=== PATIENT | male | born 1950 | race Caucasian/White ===

== ENCOUNTER → 2019-07-07 07:19 | Outpatient (CLI) | payer MEDICARE, OTHER, SELFPAY ==
[2019-07-07 08:49] LABS: Prostate Specific Antigen < 0.064 ng/mL (0.10-4.00)
== END ==
PROVIDERS: Family Provider Family Medicine; PCP Family Medicine; Referring Provider Specialist; Visit Provider Specialist
DX: C61 Malignant neoplasm of prostate (principal)
CPT/HCPCS: 36415; 84153

== ENCOUNTER → 2019-08-18 07:27 | Outpatient (CLI) | payer MEDICARE, OTHER, SELFPAY ==
[2019-08-18 09:19] LABS: Alanine Aminotransferase 29 IU/L (<50); Albumin 4.4 g/dL (3.5-5.0); Albumin Globulin Ratio 1.6 (1.0-2.8); Alkaline Phosphatase 81 U/L (38-126); Aspartate Aminotransferase 33 IU/L (17-59); BUN Creatinine Ratio 23.2 (6-22); Bilirubin Total 0.7 mg/dL (0.2-1.3); Blood Urea Nitrogen 22 mg/dL (9-20); Calcium 9.1 mg/dL (8.4-10.2); Carbon Dioxide 26 mmol/L (22-32); Chloride 106 mmol/L (98-107); Cholesterol 241 mg/dL (140-199); Estimated Glomerular Filt Rate > 60.0 mL/min (>60); Globulin 2.8 g/dL (1.7-4.1); Glucose 112 mg/dL (80-110); HDL Cholesterol 44 mg/dL (40-60); HEMOLYSIS < 15 (0-50); LDL Cholesterol Calculated 169 mg/dL (<100); Potassium 4.8 mmol/L (3.4-5.1); Sodium 140 mmol/L (137-145); Total Protein 7.2 g/dL (6.3-8.2); Triglycerides 139 mg/dL (35-150)
== END ==
PROVIDERS: Family Provider Family Medicine; PCP Internal Medicine; Referring Provider Internal Medicine; Visit Provider Internal Medicine
DX: M15.0 Primary generalized (osteo)arthritis (principal); E78.2 Mixed hyperlipidemia
CPT/HCPCS: 36415; 80053; 80061

== ENCOUNTER → 2020-01-07 15:39 | Outpatient (CLI) | payer MEDICARE, OTHER, SELFPAY | PROVIDERS: Family Provider Family Medicine; PCP Internal Medicine; Referring Provider Internal Medicine; Visit Provider Family Medicine | DX: S81.802A Unspecified open wound, left lower leg, initial encounter (principal); T81.31XA Disruption of external operation (surgical) wound, not elsewhere classified, initial encounter | CPT/HCPCS: 11042; 99203; 99213 ==

== ENCOUNTER → 2020-01-14 13:30 | Outpatient (CLI) | payer MEDICARE, OTHER, SELFPAY | PROVIDERS: PCP Internal Medicine; Referring Provider Internal Medicine; Visit Provider Family Medicine | DX: S81.802A Unspecified open wound, left lower leg, initial encounter (principal); T81.31XA Disruption of external operation (surgical) wound, not elsewhere classified, initial encounter | CPT/HCPCS: 11042 ==

== ENCOUNTER → 2020-01-21 09:04 | Outpatient (CLI) | payer MEDICARE, OTHER, SELFPAY | PROVIDERS: PCP Internal Medicine; Referring Provider Internal Medicine; Visit Provider Family Medicine | DX: S81.802A Unspecified open wound, left lower leg, initial encounter (principal) | CPT/HCPCS: 11042 ==

== ENCOUNTER → 2020-02-04 09:06 | Outpatient (CLI) | payer MEDICARE, OTHER, SELFPAY | PROVIDERS: PCP Internal Medicine; Referring Provider Internal Medicine; Visit Provider Family Medicine | DX: S81.802A Unspecified open wound, left lower leg, initial encounter (principal) | CPT/HCPCS: 11042 ==

== ENCOUNTER → 2020-02-18 08:46 | Outpatient (CLI) | payer MEDICARE, OTHER, SELFPAY | PROVIDERS: PCP Internal Medicine; Referring Provider Internal Medicine; Visit Provider Family Medicine | DX: S81.802D Unspecified open wound, left lower leg, subsequent encounter (principal) | CPT/HCPCS: 99212; 99213 ==

== ENCOUNTER → 2020-04-01 12:15 | Outpatient (CLI) | payer MEDICARE, OTHER, SELFPAY ==
[2020-04-01] MEDS: COVID-19 VACC #1, MRNA(MOD) 100 MCG/0.5 ML VIAL IM (12:21)
== END ==
PROVIDERS: PCP Internal Medicine; Visit Provider Internal Medicine
DX: Z23 Encounter for immunization (principal)
CPT/HCPCS: 0011A; 91301

== ENCOUNTER → 2020-04-29 09:37 | Outpatient (CLI) | payer MEDICARE, OTHER, SELFPAY ==
[2020-04-29] MEDS: COVID-19 VACC #2, MRNA(MOD) 100 MCG/0.5 ML VIAL IM (09:48)
== END ==
PROVIDERS: PCP Internal Medicine; Visit Provider Internal Medicine
DX: Z23 Encounter for immunization (principal)
CPT/HCPCS: 0012A; 91301

== ENCOUNTER → 2020-05-24 06:59 | Outpatient (CLI) | payer MEDICARE, OTHER, SELFPAY ==
[2020-05-24 08:29] LABS: Alanine Aminotransferase 41 IU/L (<50); Albumin 4.3 g/dL (3.5-5.0); Albumin Globulin Ratio 1.7 (1.0-2.8); Alkaline Phosphatase 75 U/L (38-126); Aspartate Aminotransferase 34 IU/L (17-59); BUN Creatinine Ratio 21.1 (6-22); Bilirubin Total 0.7 mg/dL (0.2-1.3); Blood Urea Nitrogen 20 mg/dL (9-20); Calcium 9.2 mg/dL (8.4-10.2); Carbon Dioxide 29 mmol/L (22-32); Chloride 106 mmol/L (98-107); Cholesterol 224 mg/dL (140-199); Estimated Glomerular Filt Rate > 60.0 mL/min (>60); Globulin 2.6 g/dL (1.7-4.1); Glucose 101 mg/dL (80-110); HDL Cholesterol 41 mg/dL (40-60); HEMOLYSIS < 15 (0-50); LDL Cholesterol Calculated 141 mg/dL (<100); Potassium 4.7 mmol/L (3.4-5.1); Sodium 140 mmol/L (137-145); Total Protein 6.9 g/dL (6.3-8.2); Triglycerides 208 mg/dL (35-150)
[2020-05-24 08:54] LABS: Prostate Specific Antigen < 0.064 ng/mL (0.10-4.00)
== END ==
PROVIDERS: PCP Internal Medicine; Referring Provider Internal Medicine; Visit Provider Internal Medicine
DX: E78.2 Mixed hyperlipidemia (principal); Z12.5 Encounter for screening for malignant neoplasm of prostate
CPT/HCPCS: 36415; 80053; 80061; 84153; G0103

== ENCOUNTER → 2021-03-18 09:40 | Outpatient (CLI) | payer MEDICARE, OTHER, SELFPAY ==
[2021-03-18 10:44] LABS: COVID19 -Nasal RAPID Negative (Negative)
== END ==
PROVIDERS: PCP Family Medicine; Visit Provider Specialist
DX: Z20.822 Contact with and (suspected) exposure to COVID-19 (principal)
CPT/HCPCS: 87635; C9803

== ENCOUNTER 2021-03-21 07:48 | Day surgery (SDC) | payer MEDICARE, OTHER, SELFPAY ==
[2021-03-16 08:24] VITALS: BMI 26.9
[2021-03-21] VITALS (9 sets, daily range): BP systolic 114–169; BP diastolic 64–84; PULSE 55–75; RESP 12–18; TEMP 36.3–36.6; O2SAT 95–98; BMI 26.9
[2021-03-21] MEDS: LACTATED RINGERS 1,000 ML 42 ML IV (08:14)
--- NOTE | 2021-03-21 10:19 | PM.PREOP ---
Pre-operative Note COVID-19 Criteria for continued procedure: Expected advancement of disease process, Possibility delay results in more complex future surgery or treatment, Increased loss of function, Continuing or worsening of significant or severe pain, Delay expected to result in less-positive ultimate med/surg outcome and Non-surgical alternatives not available or appropriate per current SOC Interval Note History & Physical reviewed/Exam performed by Physician: Yes Changes to H&P: No
[2021-03-21] MEDS: CEFAZOLIN 2 GM/20 ML SYRINGE IV (10:45)
--- NOTE | 2021-03-21 10:46 | SUR.OPER ---
Lithotomy on padded OR bed, head on pillow, arms secured on padded arm boards at <90 degrees abduction. Legs secured in padded yellow fins stirrups.
[2021-03-21] MEDS: BELLADONNA/OPIUM SUPPOSITORIES 1 EACH PR (10:59)
--- NOTE | 2021-03-21 12:29 | SUR.PHASEII ---
Mcguire and leg bag teaching done with patient. Pt returned demonstration correctly. SBAR report to Lenora HANSON at this time.
--- NOTE | 2021-03-31 09:18 | PM.OP.1 ---
Operative Date/Time/Diagnoses Date of procedure: 03/21/21 Time of procedure: 10:30 Pre-op diagnosis: Recurrent membranous urethral stricture Procedure & Clinicians Procedure: 1. Cystoscopy/dilation recurrent membranous urethral stricture. 2. Bladder outlet obstruction. Same procedure as scheduled: Yes Indications: 1. Recurrent membranous urethral stricture. 2. Bladder outlet obstruction. Surgeon: Mishel Herbert Anesthesia Type: General Operative Notes Findings: 1. Urethra penile and bulbar segment with normal caliber without annular stricture or lesion. 2. External sphincter-radiation changes/hypovascularity with mucosal excoriation. 3. Prostate-radiation changes with hypo vascular mucosa and telangiectasia and patchy distribution. Nonobstructing. 4. Bladder-1 to 2+ trabeculation. Normal ureteral orifices bilaterally. Closure Type: not applicable Applied: catheter (#20F silicone catheter.) Estimated Blood Loss (mL): 0 Blood products transfused: none Procedure in detail: Patient was positioned supine was administered general anesthesia. He was then repositioned semi lithotomy lower abdomen, genitalia, and groin were then prepped and draped in sterile fashion. The 22 [place]ian panendoscope then passed lower urinary tract with the findings as described above up to the external sphincter. At this point a 0.35 superstiff guidewire was advanced under direct visualization through the narrow aperture rhythm external sphincter. The panendoscope was then backloaded off the wire. Serpentine dilators were then used to gently, and successively dilated the channel to 20 [place]ian. The panendoscope was then front loaded on the guidewire and advanced proximally under direct visualization. The beak of the scope was used to dip down in through them membranous urethras segment and then was advanced more proximally without difficulty. Gentle fulcrum to the right, to the left, anterior, and posteriorly with the cystoscopic sheath was then performed. Findings were as described above. The panendoscope was then backloaded off the wire. A Councill tip was then created in the terminal and of a 20 [place]ian silicone catheter. This was then advanced over the Super Stiff guidewire and into the bladder. The superstiff guidewire was then removed. The Mcguire catheter balloon was then filled with 10 cc. And placed to gravity drainage. The patient was then repositioned in supine, was awakened, was then transferred to a [facility] for transport to PACU. Complications: none Post-operative Condition: stable Disposition: PACU Plan for aftercare: Discharge home
== END 2021-03-21 13:10 | disposition home or self-care (01) ==
PROVIDERS: PCP Family Medicine; Referring Provider Specialist; Visit Provider Specialist
PROC: (CPT 52281; principal; 2021-03-21 09:15)
DX: N35.813 Other membranous urethral stricture, male (principal); N13.8 Other obstructive and reflux uropathy; Z85.46 Personal history of malignant neoplasm of prostate
CPT/HCPCS: 52281; J0690; J1100; J1885; J2250; J2405; J2704; J3010

== ENCOUNTER → 2021-06-13 07:01 | Outpatient (CLI) | payer MEDICARE, OTHER, SELFPAY ==
[2021-06-13 08:38] LABS: Add Manual Diff / Slide Review NO; Basophils Absolute Auto 0 /uL (0-100); Basophils Percent Auto 0.7 % (0-2); Eosinophils Absolute Auto 200 /uL (0-450); Eosinophils Percent Auto 3.8 % (2-4); Hemoglobin 15.2 g/dL (13.5-17.5); Lymphocytes Absolute Auto 1500 /uL (1100-4500); Lymphocytes Percent Auto 33.3 % (25-40); Mean Corpuscular HGB Conc 33.7 % (30-36); Mean Corpuscular Hemoglobin 32.6 PG (26-34); Mean Corpuscular Volume 96.8 fL (80-100); Monocytes Absolute Auto 500 /uL (0-900); Monocytes Percent Auto 10.6 % (3-14); Neutrophils Absolute Auto 2200 /uL (1500-7000); Neutrophils Percent Auto 51.6 % (50-75); Platelet Count 160 X10^3/uL (150-400); Red Blood Cell Count 4.65 X10^6/uL (4.5-5.9); Red Cell Distribution Width 13.5 % (11.6-14.8); White Blood Cell Count 4.4 X10^3/uL (4.5-11.0)
[2021-06-13 08:55] LABS: Alanine Aminotransferase 38 IU/L (<50); Albumin 4.1 g/dL (3.5-5.0); Albumin Globulin Ratio 1.5 (1.0-2.8); Alkaline Phosphatase 69 U/L (38-126); Aspartate Aminotransferase 33 IU/L (17-59); BUN Creatinine Ratio 22.3 (6-22); Bilirubin Total 0.8 mg/dL (0.2-1.3); Blood Urea Nitrogen 21 mg/dL (9-20); Calcium 8.4 mg/dL (8.4-10.2); Carbon Dioxide 27 mmol/L (22-32); Chloride 107 mmol/L (98-107); Cholesterol 214 mg/dL (140-199); Estimated Glomerular Filt Rate > 60.0 mL/min (>60); Globulin 2.8 g/dL (1.7-4.1); Glucose 103 mg/dL (80-110); HDL Cholesterol 49 mg/dL (40-60); HEMOLYSIS < 15 (0-50); LDL Cholesterol Calculated 144 mg/dL (<100); Potassium 3.9 mmol/L (3.4-5.1); Sodium 141 mmol/L (137-145); Total Protein 6.9 g/dL (6.3-8.2); Triglycerides 105 mg/dL (35-150)
[2021-06-13 09:24] LABS: TSH w/ Reflex to FT4 2.69 uIU/mL (0.47-4.68)
== END ==
PROVIDERS: PCP Family Medicine; Referring Provider Family Medicine; Visit Provider Family Medicine
DX: E78.2 Mixed hyperlipidemia (principal); R03.0 Elevated blood-pressure reading, without diagnosis of hypertension
CPT/HCPCS: 36415; 80053; 80061; 84443; 85025

== ENCOUNTER 2021-10-26 09:45 | Outpatient (RCR) | payer MEDICARE, OTHER, SELFPAY ==
--- NOTE | 2021-08-11 13:15 | PT.OIE ---
Current Diagnoses Achilles tendinitis, right leg (08/11/21) Difficulty in walking, not elsewhere classified (08/11/21) Past Medical History (Last Reviewed 06/09/21 @ 11:56 by Mishel Herbert MD) Dry skin Hearing loss History of elevated PSA (~2006) History of malignant neoplasm of prostate History of urethral stricture Hyperlipidemia Membranous urethral stricture Vision disorder Wheezing (~2009) Past Surgical History (Last Reviewed 06/09/21 @ 11:56 by Mishel Herbert MD) Abscess (~2019) Anesthesia History of hernia repair (~1997) History of removal of skin mole (~2014) Hx of cystoscopy (03/15/21) Hx of left inguinal hernia repair (07/05/17) Prostate cancer (~2006) Visit Care Team Role Provider Type Donnie Gerard MD Attending Provider Physician Family Provider Primary Care Provider Referring Provider Specialty: Family Practice Address: [address] [place] [address] Email: [email or web address] Physical Therapy Initial Evaluation PT-OP-A Visit Information Start: 08/11/21 08:20 Freq: Status: Active Protocol: Document 08/11/21 09:45 AW (Rec: 08/11/21 08:30 AW [id number]) Out-Patient Physical Therapy Visit Information Visit Information Visit Type Initial Evaluation Visit Start Time 09:00 Visit Stop Time 09:45 Total Visit Minutes 45 Visit Number 1 Number of DRAWING BOX TENDER Visits 0 Evaluation Information Evaluation Date 08/11/21 PT-OP-B Current Condition Start: 08/11/21 08:20 Freq: Status: Active Protocol: Document 08/11/21 09:45 AW (Rec: 08/11/21 08:30 AW [id number]) Current Condition History of Current Condition Onset Date 10 months Current Complaints R foot/heel pain History of Current Condition Rizwan is an avid walker. He likes to walk 3-5 days per week for 4-6 miles at a time - usually on paved or well- maintained forest trails. He was out for a walk last year. He remembers sprinting across the street and came home with a sore Achilles tendon. It continued to bother him. For the past month, he hasn't been walking much as he has been involved with another project. Due to the break in activity, pt has very little soreness with walking at this time. PMH includes prostate cancer s /p radiation, HLD, HTN, urethral stricture, daily self -catheterization. Prior Treatments and Tests None. Treatment Goals Patient/Caregiver Goals Hiking trip in November. Prevent re-injury. PT-OP-C Subjective Start: 08/11/21 08:20 Freq: Status: Active Protocol: Document 08/11/21 09:45 AW (Rec: 08/11/21 17:21 AW [id number]) Patient Questionnaires Foot & Ankle Ability Measure- ADL and Sports FAAM-ADL Score 76 FAAM-ADL Impairment 1 to 19% Impaired (Score 67-83 ) FAAM-Sport Score 20 FAAM-Sport Impairment 20 to 39% Impaired (Score 19- 24) Lower Extremity Functional Scale LEFS Score 67 LEFS Impairment 1 to 19% Impaired (Score 63-79 ) OP-PT Pain Assessment Pain Assessment Grid Paper Pain Assessment Grid Completed Yes: Scanned to EMR PT-OP-D Balance Start: 08/11/21 08:20 Freq: Status: Active Protocol: Document 08/11/21 09:45 AW (Rec: 08/11/21 17:21 AW [id number]) Balance Tests Single Limb Standing Single Limb- Right 5 sec unstable Single Limb- Left 8 sec unstable PT-OP-E Functional Tests Start: 08/11/21 08:20 Freq: Status: Active Protocol: Document 08/11/21 09:45 AW (Rec: 08/11/21 17:23 AW [id number]) Functional Tests Functional Gait Assessment Score 29 Functional Gait Assessment Impairment 1 to <20% Impaired (Score 25- Rating 29) PT-OP-F Manual Assessment Start: 08/11/21 08:20 Freq: Status: Active Protocol: Document 08/11/21 09:45 AW (Rec: 08/11/21 17:21 AW [id number]) Manual Assessments Joint Mobility Assessment Joint Mobility Assessment Vaguely reduced A/P talar glide R ankle. Other Manual Assessments Other Manual Assessments Tender to palpation at right distal Achilles tendon. Minimal tenderness as Achilles insertion. No pain in plantar foot or at any bony landmarks of the foot. Of note, pt has slight atrophy of the left triceps surae. PT-OP-G Mobility & Gait Start: 08/11/21 08:20 Freq: Status: Active Protocol: Document 08/11/21 09:45 AW (Rec: 08/14/21 12:44 AW [id number]) OP Gait Assessment Comments Gait Comments Gait is WNL. Varus posture of knees is notable bilaterally. Good heelstrike and toe off on both sides. Stair Climbing Evaluation Comments Stair Climbing Comments Independent. Good foot clearance. Step over step. No need for rails. PT-OP-K Range of Motion Start: 08/11/21 08:20 Freq: Status: Active Protocol: Document 08/11/21 09:45 AW (Rec: 08/14/21 12:51 AW [id number]) Hip Goniometric Range of Motion Hip ROM Limitations Comments WNL Knee Goniometric Range of Motion Knee ROM Limitations Comments WNL Ankle and Foot Goniometric Range of Motion Ankle and Foot left Ankle/Foot ROM WFL Yes Dorsiflexion with Knee Flexed 50 Dorsiflexion with Knee Extended 49 Plantarflexion 40 Inversion 50 Eversion 20 right Ankle/Foot ROM WFL Yes Dorsiflexion with Knee Flexed 18 Dorsiflexion with Knee Extended 18 Plantarflexion 35 Inversion 45 Eversion 16 Toe Range of Motion Toe bilat Comments Toes are vaguely clawed in static stance PT-OP-M Strength Start: 08/11/21 08:20 Freq: Status: Active Protocol: Document 08/11/21 09:45 AW (Rec: 08/14/21 12:51 AW [id number]) Hip Strength Hip Manual Muscle Testing bilat Flexion (L2) 5 Normal Extension (S1) 5 Normal Abduction 4+ Good+ Knee Strength Knee Manual Muscle Testing bilat Flexion (S2) 5 Normal Extension (L3) 5 Normal Ankle/Foot Strength Ankle and Foot Manual Muscle Testing Left Dorsiflexion (L4) 5 Normal Plantarflexion (S1) 4 Good Inversion 5 Normal Eversion (S1) 5 Normal Comments Pt able to complete SL heel lift x 6 with good excursion. Right Dorsiflexion (L4) 5 Normal Plantarflexion (S1) 4- Good- Inversion 5 Normal Eversion (S1) 5 Normal Comments PF tested in standing with SL heel lift. Pt able to complete x4 with good excursion before fatigue and vague report of pain PT-OP-Q Treatments Start: 08/11/21 08:20 Freq: Status: Active Protocol: Document 08/11/21 09:45 AW (Rec: 08/14/21 13:14 AW [id number]) Therapeutic Exercises Standing Exercises heel lift Standing Exercise Name heel lift Side bilateral Resistance focus on eccentric phase Equipment Used 6 step, rail prn Reps/Minutes 2x15 Comments HEP soleus stretch Standing Exercise Name soleus stretch Side bilateral Reps/Minutes 60 SH x 2 Comments cued toes fwd, heel down; HEP gastroc stretch Standing Exercise Name gastroc stretch Side bilateral Reps/Minutes 60 SH x 2 Comments cued toes fwd, heel down; HEP Self-Care/Home Management Treatment Education Patient Education Home Exercise Program,Pain Management Other Education Reviewed evaluation findings and proposed plan of care based on improving strength and resiliency of right ankle. Pt understood and agreed. PT-OP-T Assessment and Plan Start: 08/11/21 08:20 Freq: Status: Active Protocol: Document 08/11/21 09:45 AW (Rec: 08/14/21 13:14 AW [id number]) Physical Therapy Assessment Rehab Potential Rehabilitation Potential Excellent Evaluation Complexity Number of Personal Factors/Comorbidities 1-2 Number of Body Systems Impaired 1-2 Clinical Presentation at Evaluation Stable Impairments Impairments Balance,Gait,Pain,Strength Other Concerns Fall Risk no Goals Three Impairment FAAM sport subscore 20% Brush Stainer Goal (LTG) Pt will improve FAAM sport subscore to 10% impairment or less to demonstrate improved resiliency and ability to participate in usual recreational activities. LTG Duration 10/11/21 Two Impairment strength Brush Stainer Goal (LTG) Pt will complete 15 reps SL heel raise bilaterally as a measure of improved plantar flexion strength LTG Duration 10/11/21 One Impairment lacks HEP Short Term Goal (STG) Pt will be instructed in appropriate HEP for strength, flexibility, and stability of ankles to support therapy services provided in clinic STG Duration 09/08/21 Brush Stainer Goal (LTG) Pt will be independent with HEP for ankle strength, flexibility, and stabilty to reduce likelihood of re-injury . LTG Duration 10/11/21 Assessment Summary Assessment Rizwan is an active 70 yo man who attends outpatient physical therapy with complaints of right Achilles pain ongoing for ~10 months with varying degrees of impairment. At time of evaluation, Rizwan had not been going for his regular 4+ mile walks and felt overall improvement in his symptoms. Pain was only mildly irritable and was most apparent with single-leg heel raises. Pt is expected to benefit from skilled therapy aimed at improving ankle strength, flexibility, and stability to reduce likelihood of re-injury and to promote return to regular physical activity. Physical Therapy Plan Frequency and Duration Frequency of Treatment 1-2x/week Duration of Treatment 2 months Plan of Care Start Date 08/11/21 Plan of Care End Date 10/11/21 Therapeutic Interventions Therapeutic Interventions Balance Training,Gait Training ,Home Exercise Program,Joint Mobilizations,Manual Therapy, Neuromuscular Re-education, Self-Care/Home Management,Soft Tissue Mobilization,Taping, Therapeutic Activities, Therapeutic Exercises Modalities Cold Pack/Ice Massage,Hot Packs,Ultrasound Next Visit Focus/Plan Next Note Type Treatment Note Next Visit Plan review initial HEP; manual therapy for improved talar glide; STM gastroc/soleus; single-leg stance, static balance on unstable surfaces
--- NOTE | 2021-08-11 13:15 | PT.OPPOC ---
Physical, Occupational & Speech Therapy At [facility] Current Diagnoses Achilles tendinitis, right leg (08/11/21) Difficulty in walking, not elsewhere classified (08/11/21) Visit Care Team Role Provider Type Donnie Gerard MD Attending Provider Physician Family Provider Primary Care Provider Referring Provider Specialty: Family Practice Address: [address] [place] [address], [facility] Email: [email or web address] Plan Of Care PT-OP-T Assessment and Plan Start: 08/11/21 08:20 Freq: Status: Active Protocol: Document 08/11/21 09:45 AW (Rec: 08/14/21 13:14 AW [id number]) Physical Therapy Assessment Rehab Potential Rehabilitation Potential Excellent Evaluation Complexity Number of Personal Factors/Comorbidities 1-2 Number of Body Systems Impaired 1-2 Clinical Presentation at Evaluation Stable Impairments Impairments Balance,Gait,Pain,Strength Other Concerns Fall Risk no Goals Three Impairment FAAM sport subscore 20% Intermediate Goal (LTG) Pt will improve FAAM sport subscore to 10% impairment or less to demonstrate improved resiliency and ability to participate in usual recreational activities. LTG Duration 10/11/21 Two Impairment strength Clay Preparation Supervisor Goal (LTG) Pt will complete 15 reps SL heel raise bilaterally as a measure of improved plantar flexion strength LTG Duration 10/11/21 One Impairment lacks HEP Short Term Goal (STG) Pt will be instructed in appropriate HEP for strength, flexibility, and stability of ankles to support therapy services provided in clinic STG Duration 09/08/21 Intermediate Goal (LTG) Pt will be independent with HEP for ankle strength, flexibility, and stabilty to reduce likelihood of re-injury . LTG Duration 10/11/21 Assessment Summary Assessment Rizwan is an active 70 yo man who attends outpatient physical therapy with complaints of right Achilles pain ongoing for ~10 months with varying degrees of impairment. At time of evaluation, Rizwan had not been going for his regular 4+ mile walks and felt overall improvement in his symptoms. Pain was only mildly irritable and was most apparent with single-leg heel raises. Pt is expected to benefit from skilled therapy aimed at improving ankle strength, flexibility, and stability to reduce likelihood of re-injury and to promote return to regular physical activity. Physical Therapy Plan Frequency and Duration Frequency of Treatment 1-2x/week Duration of Treatment 2 months Plan of Care Start Date 08/11/21 Plan of Care End Date 10/11/21 Therapeutic Interventions Therapeutic Interventions Balance Training,Gait Training ,Home Exercise Program,Joint Mobilizations,Manual Therapy, Neuromuscular Re-education, Self-Care/Home Management,Soft Tissue Mobilization,Taping, Therapeutic Activities, Therapeutic Exercises Modalities Cold Pack/Ice Massage,Hot Packs,Ultrasound Next Visit Focus/Plan Next Note Type Treatment Note Next Visit Plan review initial HEP; manual therapy for improved talar glide; STM gastroc/soleus; single-leg stance, static balance on unstable surfaces Plan of Care Dates Plan of Care Start Date 08/11/21 Plan of Care End Date 10/11/21 Electronically Signed by: Lucia Prather, PT 08/14/21 4410 If you are in agreement with this Plan of Care, please return a signed and dated copy. I have reviewed this Plan of Care and certify that the skilled therapy services above are required to meet the patient?s needs. Physician Signature Date Printed Name and Credentials Clinical Instructor Signature Printed Name and Credentials
--- NOTE | 2021-08-16 16:51 | PT.OTN ---
Current Diagnoses Achilles tendinitis, right leg (08/16/21) Difficulty in walking, not elsewhere classified (08/16/21) Physical Therapy Treatment Note PT-OP-A Visit Information Start: 08/11/21 08:20 Freq: Status: Active Protocol: Document 08/16/21 15:32 AW (Rec: 08/16/21 16:51 AW [id number]) Out-Patient Physical Therapy Visit Information Visit Information Visit Type Treatment Note Visit Start Time 16:00 Visit Stop Time 16:45 Total Visit Minutes 45 Visit Number 2 Number of INFRASTRUCTURE MANAGER Visits 0 Evaluation Information Evaluation Date 08/11/21 PT-OP-B Current Condition Start: 08/11/21 08:20 Freq: Status: Active Protocol: Document 08/11/21 09:45 AW (Rec: 08/11/21 08:30 AW [id number]) Current Condition History of Current Condition Onset Date 10 months Current Complaints R foot/heel pain History of Current Condition Rizwan is an avid walker. He likes to walk 3-5 days per week for 4-6 miles at a time - usually on paved or well- maintained forest trails. He was out for a walk last year. He remembers sprinting across the street and came home with a sore Achilles tendon. It continued to bother him. For the past month, he hasn't been walking much as he has been involved with another project. Due to the break in activity, pt has very little soreness with walking at this time. PMH includes prostate cancer s /p radiation, HLD, HTN, urethral stricture, daily self -catheterization. Prior Treatments and Tests None. Treatment Goals Patient/Caregiver Goals Hiking trip in November. Prevent re-injury. PT-OP-C Subjective Start: 08/11/21 08:20 Freq: Status: Active Protocol: Document 08/16/21 15:32 AW (Rec: 08/16/21 16:51 AW [id number]) OP-PT Subjective Patient Comments Patient Comments I've been on a couple of five mile walks. I remember to stretch before but I forget afterward. PT-OP-D Balance Start: 08/11/21 08:20 Freq: Status: Active Protocol: Document 08/11/21 09:45 AW (Rec: 08/11/21 17:21 AW [id number]) Balance Tests Single Limb Standing Single Limb- Right 5 sec unstable Single Limb- Left 8 sec unstable PT-OP-E Functional Tests Start: 08/11/21 08:20 Freq: Status: Active Protocol: Document 08/11/21 09:45 AW (Rec: 08/11/21 17:23 AW [id number]) Functional Tests Functional Gait Assessment Score 29 Functional Gait Assessment Impairment 1 to <20% Impaired (Score 25- Rating 29) PT-OP-F Manual Assessment Start: 08/11/21 08:20 Freq: Status: Active Protocol: Document 08/11/21 09:45 AW (Rec: 08/11/21 17:21 AW [id number]) Manual Assessments Joint Mobility Assessment Joint Mobility Assessment Vaguely reduced A/P talar glide R ankle. Other Manual Assessments Other Manual Assessments Tender to palpation at right distal Achilles tendon. Minimal tenderness as Achilles insertion. No pain in plantar foot or at any bony landmarks of the foot. Of note, pt has slight atrophy of the left triceps surae. PT-OP-G Mobility & Gait Start: 08/11/21 08:20 Freq: Status: Active Protocol: Document 08/11/21 09:45 AW (Rec: 08/14/21 12:44 AW [id number]) OP Gait Assessment Comments Gait Comments Gait is WNL. Varus posture of knees is notable bilaterally. Good heelstrike and toe off on both sides. Stair Climbing Evaluation Comments Stair Climbing Comments Independent. Good foot clearance. Step over step. No need for rails. PT-OP-K Range of Motion Start: 08/11/21 08:20 Freq: Status: Active Protocol: Document 08/11/21 09:45 AW (Rec: 08/14/21 12:51 AW [id number]) Hip Goniometric Range of Motion Hip ROM Limitations Comments WNL Knee Goniometric Range of Motion Knee ROM Limitations Comments WNL Ankle and Foot Goniometric Range of Motion Ankle and Foot left Ankle/Foot ROM WFL Yes Dorsiflexion with Knee Flexed 50 Dorsiflexion with Knee Extended 49 Plantarflexion 40 Inversion 50 Eversion 20 right Ankle/Foot ROM WFL Yes Dorsiflexion with Knee Flexed 18 Dorsiflexion with Knee Extended 18 Plantarflexion 35 Inversion 45 Eversion 16 Toe Range of Motion Toe bilat Comments Toes are vaguely clawed in static stance PT-OP-M Strength Start: 08/11/21 08:20 Freq: Status: Active Protocol: Document 08/11/21 09:45 AW (Rec: 08/14/21 12:51 AW [id number]) Hip Strength Hip Manual Muscle Testing bilat Flexion (L2) 5 Normal Extension (S1) 5 Normal Abduction 4+ Good+ Knee Strength Knee Manual Muscle Testing bilat Flexion (S2) 5 Normal Extension (L3) 5 Normal Ankle/Foot Strength Ankle and Foot Manual Muscle Testing Left Dorsiflexion (L4) 5 Normal Plantarflexion (S1) 4 Good Inversion 5 Normal Eversion (S1) 5 Normal Comments Pt able to complete SL heel lift x 6 with good excursion. Right Dorsiflexion (L4) 5 Normal Plantarflexion (S1) 4- Good- Inversion 5 Normal Eversion (S1) 5 Normal Comments PF tested in standing with SL heel lift. Pt able to complete x4 with good excursion before fatigue and vague report of pain PT-OP-Q Treatments Start: 08/11/21 08:20 Freq: Status: Active Protocol: Document 08/16/21 15:32 AW (Rec: 08/16/21 16:51 AW [id number]) Cardio Equipment Elliptical Duration (Minutes) 4 Resistance 5 Therapeutic Exercises Standing Exercises squat tap Standing Exercise Name squat tap Equipment Used std ht chair; 16 block Comments HEP DF self-mob Standing Exercise Name DF self-mob Side right Equipment Used 12 step Comments cued knees as far past toes as able with SLS Standing Exercise Name SLS Side bilateral Equipment Used with counter support prn Comments cued weight distribution on plantar foot, limit trunk lean ; HEP heel lift Standing Exercise Name heel lift Side bilateral Resistance focus on eccentric phase Equipment Used 6 step, rail prn Reps/Minutes 2x15 Comments HEP review; cued count 1 up, 4 down soleus stretch Standing Exercise Name soleus stretch Side bilateral Reps/Minutes 60 SH x 2 Comments cued toes fwd, heel down; HEP review gastroc stretch Standing Exercise Name gastroc stretch Side bilateral Reps/Minutes 60 SH x 2 Comments cued toes fwd, heel down; HEP review Manual Therapy Treatment Soft Tissue Mobilization R gastroc/soleus/Achilles Body Location R gastroc/soleus/Achilles Mobilization Type Rolling,Strumming,Sustained Pressure,Trigger Point Release Intensity/Depth Moderate Body Position Prone Comments TP noted lateral gastroc; reduced density post STM Joint Mobilizations R talus Joint R talus Direction A>P Grade III Body Position Supine Comments With contract-relax for improved DF Self-Care/Home Management Treatment Education Patient Education Home Exercise Program Other Education Added standing DF self-mob, SLS, and squat tap for HEP PT-OP-T Assessment and Plan Start: 08/11/21 08:20 Freq: Status: Active Protocol: Document 08/16/21 15:32 AW (Rec: 08/16/21 16:51 AW [id number]) Physical Therapy Assessment Goals Three Impairment FAAM sport subscore 20% Inspector Penetrant Goal (LTG) Pt will improve FAAM sport subscore to 10% impairment or less to demonstrate improved resiliency and ability to participate in usual recreational activities. LTG Duration 10/11/21 Two Impairment strength Inspector Penetrant Goal (LTG) Pt will complete 15 reps SL heel raise bilaterally as a measure of improved plantar flexion strength LTG Duration 10/11/21 One Impairment lacks HEP Short Term Goal (STG) Pt will be instructed in appropriate HEP for strength, flexibility, and stability of ankles to support therapy services provided in clinic STG Duration 09/08/21 Snf Goal (LTG) Pt will be independent with HEP for ankle strength, flexibility, and stabilty to reduce likelihood of re-injury . LTG Duration 10/11/21 Assessment Summary Assessment Rizwan is quite challenged with single leg stance - unable to maintain without significant shear and UE support on countertop. Added SLS to HEP. Pt responds well to STM gastroc/soleus and tolerates ther ex well. Increased cues to concentrate on eccentric phase of heel lift and pt understood. Physical Therapy Plan Frequency and Duration Frequency of Treatment 1-2x/week Duration of Treatment 2 months Plan of Care Start Date 08/11/21 Plan of Care End Date 10/11/21 Therapeutic Interventions Therapeutic Interventions Balance Training,Gait Training ,Home Exercise Program,Joint Mobilizations,Manual Therapy, Neuromuscular Re-education, Self-Care/Home Management,Soft Tissue Mobilization,Taping, Therapeutic Activities, Therapeutic Exercises Modalities Cold Pack/Ice Massage,Hot Packs,Ultrasound Next Visit Focus/Plan Next Note Type Treatment Note Next Visit Plan Revisit SLS. manual therapy for improved talar glide; STM gastroc/soleus; single-leg stance, static balance on unstable surfaces
--- NOTE | 2021-09-07 11:17 | PT.OTN ---
Current Diagnoses Achilles tendinitis, right leg (09/07/21) Difficulty in walking, not elsewhere classified (09/07/21) Physical Therapy Treatment Note PT-OP-A Visit Information Start: 08/11/21 08:20 Freq: Status: Active Protocol: Document 09/07/21 09:23 AW (Rec: 09/07/21 11:17 AW [id number]) Out-Patient Physical Therapy Visit Information Visit Information Visit Type Treatment Note Visit Start Time 10:30 Visit Stop Time 11:15 Total Visit Minutes 45 Visit Number 3 Number of TACK COVERER Visits 0 Evaluation Information Evaluation Date 08/11/21 PT-OP-B Current Condition Start: 08/11/21 08:20 Freq: Status: Active Protocol: Document 08/11/21 09:45 AW (Rec: 08/11/21 08:30 AW [id number]) Current Condition History of Current Condition Onset Date 10 months Current Complaints R foot/heel pain History of Current Condition Rizwan is an avid walker. He likes to walk 3-5 days per week for 4-6 miles at a time - usually on paved or well- maintained forest trails. He was out for a walk last year. He remembers sprinting across the street and came home with a sore Achilles tendon. It continued to bother him. For the past month, he hasn't been walking much as he has been involved with another project. Due to the break in activity, pt has very little soreness with walking at this time. PMH includes prostate cancer s /p radiation, HLD, HTN, urethral stricture, daily self -catheterization. Prior Treatments and Tests None. Treatment Goals Patient/Caregiver Goals Hiking trip in November. Prevent re-injury. PT-OP-C Subjective Start: 08/11/21 08:20 Freq: Status: Active Protocol: Document 09/07/21 09:23 AW (Rec: 09/07/21 11:17 AW [id number]) OP-PT Subjective Patient Comments Patient Comments Pt reports overall improvement but still has noticeable difference right to left in terms of pain. SLS is improving per pt report. Patient Reported Progress Improving PT-OP-D Balance Start: 08/11/21 08:20 Freq: Status: Active Protocol: Document 08/11/21 09:45 AW (Rec: 08/11/21 17:21 AW [id number]) Balance Tests Single Limb Standing Single Limb- Right 5 sec unstable Single Limb- Left 8 sec unstable PT-OP-E Functional Tests Start: 08/11/21 08:20 Freq: Status: Active Protocol: Document 08/11/21 09:45 AW (Rec: 08/11/21 17:23 AW [id number]) Functional Tests Functional Gait Assessment Score 29 Functional Gait Assessment Impairment 1 to <20% Impaired (Score 25- Rating 29) PT-OP-F Manual Assessment Start: 08/11/21 08:20 Freq: Status: Active Protocol: Document 08/11/21 09:45 AW (Rec: 08/11/21 17:21 AW [id number]) Manual Assessments Joint Mobility Assessment Joint Mobility Assessment Vaguely reduced A/P talar glide R ankle. Other Manual Assessments Other Manual Assessments Tender to palpation at right distal Achilles tendon. Minimal tenderness as Achilles insertion. No pain in plantar foot or at any bony landmarks of the foot. Of note, pt has slight atrophy of the left triceps surae. PT-OP-G Mobility & Gait Start: 08/11/21 08:20 Freq: Status: Active Protocol: Document 08/11/21 09:45 AW (Rec: 08/14/21 12:44 AW [id number]) OP Gait Assessment Comments Gait Comments Gait is WNL. Varus posture of knees is notable bilaterally. Good heelstrike and toe off on both sides. Stair Climbing Evaluation Comments Stair Climbing Comments Independent. Good foot clearance. Step over step. No need for rails. PT-OP-K Range of Motion Start: 08/11/21 08:20 Freq: Status: Active Protocol: Document 08/11/21 09:45 AW (Rec: 08/14/21 12:51 AW [id number]) Hip Goniometric Range of Motion Hip ROM Limitations Comments WNL Knee Goniometric Range of Motion Knee ROM Limitations Comments WNL Ankle and Foot Goniometric Range of Motion Ankle and Foot left Ankle/Foot ROM WFL Yes Dorsiflexion with Knee Flexed 50 Dorsiflexion with Knee Extended 49 Plantarflexion 40 Inversion 50 Eversion 20 right Ankle/Foot ROM WFL Yes Dorsiflexion with Knee Flexed 18 Dorsiflexion with Knee Extended 18 Plantarflexion 35 Inversion 45 Eversion 16 Toe Range of Motion Toe bilat Comments Toes are vaguely clawed in static stance PT-OP-M Strength Start: 08/11/21 08:20 Freq: Status: Active Protocol: Document 08/11/21 09:45 AW (Rec: 08/14/21 12:51 AW [id number]) Hip Strength Hip Manual Muscle Testing bilat Flexion (L2) 5 Normal Extension (S1) 5 Normal Abduction 4+ Good+ Knee Strength Knee Manual Muscle Testing bilat Flexion (S2) 5 Normal Extension (L3) 5 Normal Ankle/Foot Strength Ankle and Foot Manual Muscle Testing Left Dorsiflexion (L4) 5 Normal Plantarflexion (S1) 4 Good Inversion 5 Normal Eversion (S1) 5 Normal Comments Pt able to complete SL heel lift x 6 with good excursion. Right Dorsiflexion (L4) 5 Normal Plantarflexion (S1) 4- Good- Inversion 5 Normal Eversion (S1) 5 Normal Comments PF tested in standing with SL heel lift. Pt able to complete x4 with good excursion before fatigue and vague report of pain PT-OP-Q Treatments Start: 08/11/21 08:20 Freq: Status: Active Protocol: Document 09/07/21 09:23 AW (Rec: 09/07/21 11:17 AW [id number]) Therapeutic Exercises Sitting Exercises foot intrinsics Sitting Exercise Name foot intrinsics - towel scrunch, marble belt picker Side right Standing Exercises DF self-mob Standing Exercise Name DF self-mob Side right Equipment Used 12 step Comments with PT assisting talar glide SLS Standing Exercise Name SLS Side bilateral Equipment Used with counter support prn Comments left more impaired heel lift Standing Exercise Name heel lift Side bilateral Resistance focus on eccentric phase Equipment Used 6 step, rail prn Reps/Minutes 2x15 Comments + unilateral R (4 reps before fatigue) Manual Therapy Treatment Joint Mobilizations forefoot - interMT Joint forefoot - interMT Direction A/P Grade III Body Position Supine R talus Joint R talus Direction A>P Grade III Body Position Supine Comments With contract-relax for improved DF Neuro Re-Education Treatment Balance Activities foam stance Details foam stance Surface two blue airex pads Comments WBOS - EO, EC, head turns, nods NBOS - EO, EC, head turns, nods tandem stance Details tandem - with and without A/P weight shifts Comments EO Self-Care/Home Management Treatment Education Patient Education Home Exercise Program Other Education Added tandem stance and unilateral heel lift on solid ground (not stair) PT-OP-T Assessment and Plan Start: 08/11/21 08:20 Freq: Status: Active Protocol: Document 09/07/21 09:23 AW (Rec: 09/07/21 11:17 AW [id number]) Physical Therapy Assessment Goals Three Impairment FAAM sport subscore 20% Intensive Care Unit Registered Nurse Goal (LTG) Pt will improve FAAM sport subscore to 10% impairment or less to demonstrate improved resiliency and ability to participate in usual recreational activities. LTG Duration 10/11/21 Two Impairment strength Correction Goal (LTG) Pt will complete 15 reps SL heel raise bilaterally as a measure of improved plantar flexion strength LTG Duration 10/11/21 One Impairment lacks HEP Short Term Goal (STG) Pt will be instructed in appropriate HEP for strength, flexibility, and stability of ankles to support therapy services provided in clinic STG Duration 09/08/21 Intensive Care Unit Registered Nurse Goal (LTG) Pt will be independent with HEP for ankle strength, flexibility, and stabilty to reduce likelihood of re-injury . LTG Duration 10/11/21 Assessment Summary Assessment Single leg stance is improving with less lateral shear and less need for UE support. Introduced foot intrinsics today and added tandem stance, unilateral heel lift to HEP Physical Therapy Plan Frequency and Duration Frequency of Treatment 1-2x/week Duration of Treatment 2 months Plan of Care Start Date 08/11/21 Plan of Care End Date 10/11/21 Therapeutic Interventions Therapeutic Interventions Balance Training,Gait Training ,Home Exercise Program,Joint Mobilizations,Manual Therapy, Neuromuscular Re-education, Self-Care/Home Management,Soft Tissue Mobilization,Taping, Therapeutic Activities, Therapeutic Exercises Modalities Cold Pack/Ice Massage,Hot Packs,Ultrasound Next Visit Focus/Plan Next Note Type Treatment Note Next Visit Plan Revisit SLS. manual therapy for improved talar glide; STM gastroc/soleus; single-leg stance, static balance on unstable surfaces
--- NOTE | 2021-09-13 11:14 | PT.OTN ---
Current Diagnoses Achilles tendinitis, right leg (09/13/21) Difficulty in walking, not elsewhere classified (09/13/21) Physical Therapy Treatment Note PT-OP-A Visit Information Start: 08/11/21 08:20 Freq: Status: Active Protocol: Document 09/13/21 08:57 AW (Rec: 09/13/21 11:14 AW [id number]) Out-Patient Physical Therapy Visit Information Visit Information Visit Type Treatment Note Visit Start Time 10:30 Visit Stop Time 11:15 Total Visit Minutes 45 Visit Number 4 Number of PARKING STATION ATTENDANT Visits 0 Evaluation Information Evaluation Date 08/11/21 PT-OP-B Current Condition Start: 08/11/21 08:20 Freq: Status: Active Protocol: Document 08/11/21 09:45 AW (Rec: 08/11/21 08:30 AW [id number]) Current Condition History of Current Condition Onset Date 10 months Current Complaints R foot/heel pain History of Current Condition Rizwan is an avid walker. He likes to walk 3-5 days per week for 4-6 miles at a time - usually on paved or well- maintained forest trails. He was out for a walk last year. He remembers sprinting across the street and came home with a sore Achilles tendon. It continued to bother him. For the past month, he hasn't been walking much as he has been involved with another project. Due to the break in activity, pt has very little soreness with walking at this time. PMH includes prostate cancer s /p radiation, HLD, HTN, urethral stricture, daily self -catheterization. Prior Treatments and Tests None. Treatment Goals Patient/Caregiver Goals Hiking trip in November. Prevent re-injury. PT-OP-C Subjective Start: 08/11/21 08:20 Freq: Status: Active Protocol: Document 09/13/21 08:57 AW (Rec: 09/13/21 11:14 AW [id number]) OP-PT Subjective Patient Comments Patient Comments Stable symptoms. Has been doing exercises but hasn't been walking much. Single leg stance is very challenging. Patient Reported Progress Same PT-OP-D Balance Start: 08/11/21 08:20 Freq: Status: Active Protocol: Document 08/11/21 09:45 AW (Rec: 08/11/21 17:21 AW [id number]) Balance Tests Single Limb Standing Single Limb- Right 5 sec unstable Single Limb- Left 8 sec unstable PT-OP-E Functional Tests Start: 08/11/21 08:20 Freq: Status: Active Protocol: Document 08/11/21 09:45 AW (Rec: 08/11/21 17:23 AW [id number]) Functional Tests Functional Gait Assessment Score 29 Functional Gait Assessment Impairment 1 to <20% Impaired (Score 25- Rating 29) PT-OP-F Manual Assessment Start: 08/11/21 08:20 Freq: Status: Active Protocol: Document 08/11/21 09:45 AW (Rec: 08/11/21 17:21 AW [id number]) Manual Assessments Joint Mobility Assessment Joint Mobility Assessment Vaguely reduced A/P talar glide R ankle. Other Manual Assessments Other Manual Assessments Tender to palpation at right distal Achilles tendon. Minimal tenderness as Achilles insertion. No pain in plantar foot or at any bony landmarks of the foot. Of note, pt has slight atrophy of the left triceps surae. PT-OP-G Mobility & Gait Start: 08/11/21 08:20 Freq: Status: Active Protocol: Document 08/11/21 09:45 AW (Rec: 08/14/21 12:44 AW [id number]) OP Gait Assessment Comments Gait Comments Gait is WNL. Varus posture of knees is notable bilaterally. Good heelstrike and toe off on both sides. Stair Climbing Evaluation Comments Stair Climbing Comments Independent. Good foot clearance. Step over step. No need for rails. PT-OP-K Range of Motion Start: 08/11/21 08:20 Freq: Status: Active Protocol: Document 08/11/21 09:45 AW (Rec: 08/14/21 12:51 AW [id number]) Hip Goniometric Range of Motion Hip ROM Limitations Comments WNL Knee Goniometric Range of Motion Knee ROM Limitations Comments WNL Ankle and Foot Goniometric Range of Motion Ankle and Foot left Ankle/Foot ROM WFL Yes Dorsiflexion with Knee Flexed 50 Dorsiflexion with Knee Extended 49 Plantarflexion 40 Inversion 50 Eversion 20 right Ankle/Foot ROM WFL Yes Dorsiflexion with Knee Flexed 18 Dorsiflexion with Knee Extended 18 Plantarflexion 35 Inversion 45 Eversion 16 Toe Range of Motion Toe bilat Comments Toes are vaguely clawed in static stance PT-OP-M Strength Start: 08/11/21 08:20 Freq: Status: Active Protocol: Document 08/11/21 09:45 AW (Rec: 08/14/21 12:51 AW [id number]) Hip Strength Hip Manual Muscle Testing bilat Flexion (L2) 5 Normal Extension (S1) 5 Normal Abduction 4+ Good+ Knee Strength Knee Manual Muscle Testing bilat Flexion (S2) 5 Normal Extension (L3) 5 Normal Ankle/Foot Strength Ankle and Foot Manual Muscle Testing Left Dorsiflexion (L4) 5 Normal Plantarflexion (S1) 4 Good Inversion 5 Normal Eversion (S1) 5 Normal Comments Pt able to complete SL heel lift x 6 with good excursion. Right Dorsiflexion (L4) 5 Normal Plantarflexion (S1) 4- Good- Inversion 5 Normal Eversion (S1) 5 Normal Comments PF tested in standing with SL heel lift. Pt able to complete x4 with good excursion before fatigue and vague report of pain PT-OP-Q Treatments Start: 08/11/21 08:20 Freq: Status: Active Protocol: Document 09/13/21 08:57 AW (Rec: 09/13/21 11:14 AW [id number]) Cardio Equipment Elliptical Duration (Minutes) 4 Resistance 5 Therapeutic Exercises Standing Exercises step ups Standing Exercise Name step ups Side bilateral Resistance alternating Equipment Used round side bosu heel lift Standing Exercise Name heel lift Side bilateral Resistance focus on eccentric phase Equipment Used 6 step, rail prn Reps/Minutes 2x15 gastroc stretch Standing Exercise Name gastroc stretch Side bilateral Equipment Used JANET Reps/Minutes 60 SH x 2 Comments cued toes fwd, heel down; HEP review Manual Therapy Treatment Soft Tissue Mobilization R gastroc/soleus/Achilles Body Location R gastroc/soleus/Achilles Mobilization Type Rolling,Strumming,Sustained Pressure,Trigger Point Release Intensity/Depth Moderate Body Position Prone Comments TP noted medial gastroc; reduced density post STM Joint Mobilizations forefoot - interMT Joint MTP - 1st Direction into flexion R talus Joint R talus Direction A>P Grade III Body Position Supine Comments With contract-relax for improved DF Neuro Re-Education Treatment Balance Activities rocker board Details rocker board Comments -A/P -lateral foam stance Details foam stance Surface blue foam square Comments NBOS - EO, EC, head turns, nods tandem stance Details tandem - with and without A/P weight shifts Comments EO Self-Care/Home Management Treatment Education Patient Education Home Exercise Program Other Education Reinforced to do tandem stance at home. Starred stretches, eccentric heel lifts, SLS, and tandem stance PT-OP-T Assessment and Plan Start: 08/11/21 08:20 Freq: Status: Active Protocol: Document 09/13/21 08:57 AW (Rec: 09/13/21 11:14 AW [id number]) Physical Therapy Assessment Goals Three Impairment FAAM sport subscore 20% Retirement Goal (LTG) Pt will improve FAAM sport subscore to 10% impairment or less to demonstrate improved resiliency and ability to participate in usual recreational activities. LTG Duration 10/11/21 Two Impairment strength Reading Efficiency Course Director Goal (LTG) Pt will complete 15 reps SL heel raise bilaterally as a measure of improved plantar flexion strength LTG Duration 10/11/21 One Impairment lacks HEP Short Term Goal (STG) Pt will be instructed in appropriate HEP for strength, flexibility, and stability of ankles to support therapy services provided in clinic STG Duration 09/08/21 Retirement Goal (LTG) Pt will be independent with HEP for ankle strength, flexibility, and stabilty to reduce likelihood of re-injury . LTG Duration 10/11/21 Assessment Summary Assessment Symptoms stable but pt has been less active since returning from vacation. Balance remains challenged but slowly improving. Physical Therapy Plan Frequency and Duration Frequency of Treatment 1-2x/week Duration of Treatment 2 months Plan of Care Start Date 08/11/21 Plan of Care End Date 10/11/21 Therapeutic Interventions Therapeutic Interventions Balance Training,Gait Training ,Home Exercise Program,Joint Mobilizations,Manual Therapy, Neuromuscular Re-education, Self-Care/Home Management,Soft Tissue Mobilization,Taping, Therapeutic Activities, Therapeutic Exercises Modalities Cold Pack/Ice Massage,Hot Packs,Ultrasound Next Visit Focus/Plan Next Note Type Treatment Note Next Visit Plan Revisit SLS. manual therapy for improved talar glide; STM gastroc/soleus; single-leg stance, static balance on unstable surfaces
--- NOTE | 2021-10-26 10:27 | PT.OTN ---
Current Diagnoses Achilles tendinitis, right leg (10/26/21) Difficulty in walking, not elsewhere classified (10/26/21) Physical Therapy Treatment Note PT-OP-A Visit Information Start: 08/11/21 08:20 Freq: Status: Active Protocol: Document 10/26/21 09:22 AW (Rec: 10/26/21 10:27 AW [id number]) Out-Patient Physical Therapy Visit Information Visit Information Visit Type Discharge Summary Visit Start Time 09:45 Visit Stop Time 10:16 Total Visit Minutes 31 Visit Number 5 Number of BASKETBALL ASSEMBLER Visits 0 Evaluation Information Evaluation Date 08/11/21 PT-OP-B Current Condition Start: 08/11/21 08:20 Freq: Status: Active Protocol: Document 08/11/21 09:45 AW (Rec: 08/11/21 08:30 AW [id number]) Current Condition History of Current Condition Onset Date 10 months Current Complaints R foot/heel pain History of Current Condition Rizwan is an avid walker. He likes to walk 3-5 days per week for 4-6 miles at a time - usually on paved or well- maintained forest trails. He was out for a walk last year. He remembers sprinting across the street and came home with a sore Achilles tendon. It continued to bother him. For the past month, he hasn't been walking much as he has been involved with another project. Due to the break in activity, pt has very little soreness with walking at this time. PMH includes prostate cancer s /p radiation, HLD, HTN, urethral stricture, daily self -catheterization. Prior Treatments and Tests None. Treatment Goals Patient/Caregiver Goals Hiking trip in November. Prevent re-injury. PT-OP-C Subjective Start: 08/11/21 08:20 Freq: Status: Active Protocol: Document 10/26/21 09:22 AW (Rec: 10/26/21 10:27 AW [id number]) OP-PT Subjective Patient Comments Patient Comments Pain is not limiting walking distance or terrain but pt does still note pinching pain at anterior ankle with all dorsiflexion stretches. PT-OP-D Balance Start: 08/11/21 08:20 Freq: Status: Active Protocol: Document 08/11/21 09:45 AW (Rec: 08/11/21 17:21 AW [id number]) Balance Tests Single Limb Standing Single Limb- Right 5 sec unstable Single Limb- Left 8 sec unstable PT-OP-E Functional Tests Start: 08/11/21 08:20 Freq: Status: Active Protocol: Document 08/11/21 09:45 AW (Rec: 08/11/21 17:23 AW [id number]) Functional Tests Functional Gait Assessment Score 29 Functional Gait Assessment Impairment 1 to <20% Impaired (Score 25- Rating 29) PT-OP-F Manual Assessment Start: 08/11/21 08:20 Freq: Status: Active Protocol: Document 08/11/21 09:45 AW (Rec: 08/11/21 17:21 AW [id number]) Manual Assessments Joint Mobility Assessment Joint Mobility Assessment Vaguely reduced A/P talar glide R ankle. Other Manual Assessments Other Manual Assessments Tender to palpation at right distal Achilles tendon. Minimal tenderness as Achilles insertion. No pain in plantar foot or at any bony landmarks of the foot. Of note, pt has slight atrophy of the left triceps surae. PT-OP-G Mobility & Gait Start: 08/11/21 08:20 Freq: Status: Active Protocol: Document 08/11/21 09:45 AW (Rec: 08/14/21 12:44 AW [id number]) OP Gait Assessment Comments Gait Comments Gait is WNL. Varus posture of knees is notable bilaterally. Good heelstrike and toe off on both sides. Stair Climbing Evaluation Comments Stair Climbing Comments Independent. Good foot clearance. Step over step. No need for rails. PT-OP-K Range of Motion Start: 08/11/21 08:20 Freq: Status: Active Protocol: Document 08/11/21 09:45 AW (Rec: 08/14/21 12:51 AW [id number]) Hip Goniometric Range of Motion Hip ROM Limitations Comments WNL Knee Goniometric Range of Motion Knee ROM Limitations Comments WNL Ankle and Foot Goniometric Range of Motion Ankle and Foot left Ankle/Foot ROM WFL Yes Dorsiflexion with Knee Flexed 50 Dorsiflexion with Knee Extended 49 Plantarflexion 40 Inversion 50 Eversion 20 right Ankle/Foot ROM WFL Yes Dorsiflexion with Knee Flexed 18 Dorsiflexion with Knee Extended 18 Plantarflexion 35 Inversion 45 Eversion 16 Toe Range of Motion Toe bilat Comments Toes are vaguely clawed in static stance PT-OP-M Strength Start: 08/11/21 08:20 Freq: Status: Active Protocol: Document 08/11/21 09:45 AW (Rec: 08/14/21 12:51 AW [id number]) Hip Strength Hip Manual Muscle Testing bilat Flexion (L2) 5 Normal Extension (S1) 5 Normal Abduction 4+ Good+ Knee Strength Knee Manual Muscle Testing bilat Flexion (S2) 5 Normal Extension (L3) 5 Normal Ankle/Foot Strength Ankle and Foot Manual Muscle Testing Left Dorsiflexion (L4) 5 Normal Plantarflexion (S1) 4 Good Inversion 5 Normal Eversion (S1) 5 Normal Comments Pt able to complete SL heel lift x 6 with good excursion. Right Dorsiflexion (L4) 5 Normal Plantarflexion (S1) 4- Good- Inversion 5 Normal Eversion (S1) 5 Normal Comments PF tested in standing with SL heel lift. Pt able to complete x4 with good excursion before fatigue and vague report of pain PT-OP-Q Treatments Start: 08/11/21 08:20 Freq: Status: Active Protocol: Document 10/26/21 09:22 AW (Rec: 10/26/21 10:27 AW [id number]) Cardio Equipment Elliptical Duration (Minutes) 4 Resistance 5 Therapeutic Exercises Standing Exercises SL swing Standing Exercise Name SL swing (opp leg) SL clock taps Standing Exercise Name SL clock taps Side bilateral DF self-mob Standing Exercise Name DF self-mob Side right Resistance TB5 anchored behind Comments HEP SLS Standing Exercise Name SLS Side bilateral Equipment Used with counter support prn Comments 10-15 sec BLE heel lift Standing Exercise Name heel lift - 1. eccentric 2. speed Resistance bilat and uni Equipment Used rail prn Reps/Minutes 2x15 Comments HEP gastroc stretch Standing Exercise Name gastroc stretch Side bilateral Equipment Used AJNET Reps/Minutes 60 SH x 2 Comments cued toes fwd, heel down; HEP review Manual Therapy Treatment Joint Mobilizations R talus Joint R talus Direction A>P Grade III Body Position Supine Comments With contract-relax for improved DF Self-Care/Home Management Treatment Education Patient Education Home Exercise Program Other Education Added self-talar glide with anchored resistance for HEP PT-OP-T Assessment and Plan Start: 08/11/21 08:20 Freq: Status: Active Protocol: Document 10/26/21 09:22 AW (Rec: 10/26/21 10:27 AW [id number]) Physical Therapy Assessment Goals Three Impairment FAAM sport subscore 20% Director Of Program Management Goal (LTG) Pt will improve FAAM sport subscore to 10% impairment or less to demonstrate improved resiliency and ability to participate in usual recreational activities. 10/26/21 - GOAL MET LTG Duration GOAL MET Two Impairment strength Usp Goal (LTG) Pt will complete 15 reps SL heel raise bilaterally as a measure of improved plantar flexion strength 10/26/21 - GOAL MET LTG Duration GOAL MET One Impairment lacks HEP Short Term Goal (STG) Pt will be instructed in appropriate HEP for strength, flexibility, and stability of ankles to support therapy services provided in clinic STG Duration 09/08/21 Director Of Program Management Goal (LTG) Pt will be independent with HEP for ankle strength, flexibility, and stabilty to reduce likelihood of re-injury . LTG Duration 10/11/21 - GOAL MET Assessment Summary Assessment Pt has improved single leg strength and stability as evidenced by good elevation with single-leg heel lifts bilaterally and single-leg stance time 10-15 seconds. Pt continues to have minor irritation at anterior ankle with dorsiflexion stretches. Added self-talar mobilization for HEP. Physical Therapy Plan Frequency and Duration Frequency of Treatment 1-2x/week Duration of Treatment 2 months Plan of Care Start Date 08/11/21 Plan of Care End Date 10/11/21 Therapeutic Interventions Therapeutic Interventions Balance Training,Gait Training ,Home Exercise Program,Joint Mobilizations,Manual Therapy, Neuromuscular Re-education, Self-Care/Home Management,Soft Tissue Mobilization,Taping, Therapeutic Activities, Therapeutic Exercises Modalities Cold Pack/Ice Massage,Hot Packs,Ultrasound Discharge Physical Therapy Discharge Reasons Goals Met Discharge Comments Pt has met all goals and is appropriate for discharge to [facility]. He is back to walking 3-4 miles at a time without limitation. He understands he will need a new referral if he wishes to return to PT.
--- NOTE | 2021-10-27 12:58 | PT.OPPOC ---
Physical, Occupational & Speech Therapy At [facility] Current Diagnoses Achilles tendinitis, right leg (10/26/21) Difficulty in walking, not elsewhere classified (10/26/21) Visit Care Team Role Provider Type Donnie Gerard MD Attending Provider Physician Family Provider Primary Care Provider Referring Provider Specialty: Family Practice Address: [address] [place] [address], [facility] Email: [email or web address] Plan Of Care PT-OP-T Assessment and Plan Start: 08/11/21 08:20 Freq: Status: Active Protocol: Document 10/26/21 09:22 AW (Rec: 10/26/21 10:27 AW [id number]) Physical Therapy Assessment Goals Three Impairment FAAM sport subscore 20% Well Service Floorperson Goal (LTG) Pt will improve FAAM sport subscore to 10% impairment or less to demonstrate improved resiliency and ability to participate in usual recreational activities. 10/26/21 - GOAL MET LTG Duration GOAL MET Two Impairment strength [facility] Goal (LTG) Pt will complete 15 reps SL heel raise bilaterally as a measure of improved plantar flexion strength 10/26/21 - GOAL MET LTG Duration GOAL MET One Impairment lacks HEP Short Term Goal (STG) Pt will be instructed in appropriate HEP for strength, flexibility, and stability of ankles to support therapy services provided in clinic STG Duration 09/08/21 Well Service Floorperson Goal (LTG) Pt will be independent with HEP for ankle strength, flexibility, and stabilty to reduce likelihood of re-injury . LTG Duration 10/11/21 - GOAL MET Assessment Summary Assessment Pt has improved single leg strength and stability as evidenced by good elevation with single-leg heel lifts bilaterally and single-leg stance time 10-15 seconds. Pt continues to have minor irritation at anterior ankle with dorsiflexion stretches. Added self-talar mobilization for HEP. Physical Therapy Plan Frequency and Duration Frequency of Treatment 1-2x/week Duration of Treatment 2 months Plan of Care Start Date 08/11/21 Plan of Care End Date 10/25/21 Therapeutic Interventions Therapeutic Interventions Balance Training,Gait Training ,Home Exercise Program,Joint Mobilizations,Manual Therapy, Neuromuscular Re-education, Self-Care/Home Management,Soft Tissue Mobilization,Taping, Therapeutic Activities, Therapeutic Exercises Modalities Cold Pack/Ice Massage,Hot Packs,Ultrasound Discharge Physical Therapy Discharge Reasons Goals Met Discharge Comments Pt has met all goals and is appropriate for discharge to [facility]. He is back to walking 3-4 miles at a time without limitation. He understands he will need a new referral if he wishes to return to PT. Plan of Care Dates Plan of Care Start Date 08/11/21 Plan of Care End Date 10/25/21 Electronically Signed by: Lucia Prather, PT 10/27/21 3735 If you are in agreement with this Plan of Care, please return a signed and dated copy. I have reviewed this Plan of Care and certify that the skilled therapy services above are required to meet the patient?s needs. Physician Signature Date Printed Name and Credentials Clinical Instructor Signature Printed Name and Credentials
== END 2021-11-18 09:13 ==
LOC: PHYS 09:45
PROVIDERS: Family Provider Family Medicine; PCP Family Medicine; Referring Provider Family Medicine; Visit Provider Family Medicine
DX: M76.61 Achilles tendinitis, right leg (principal); R26.2 Difficulty in walking, not elsewhere classified
CPT/HCPCS: 97110; 97112; 97140; 97161

== ENCOUNTER → 2022-07-05 14:00 | Outpatient (CLI) | payer MEDICARE, OTHER, SELFPAY ==
[2022-07-06 15:51] LABS: Fecal Immunochemical Test Negative (Negative)
== END ==
PROVIDERS: Family Provider Family Medicine; PCP Family Medicine; Referring Provider Family Medicine; Visit Provider Family Medicine
DX: Z12.11 Encounter for screening for malignant neoplasm of colon (principal); E78.5 Hyperlipidemia, unspecified; Z85.46 Personal history of malignant neoplasm of prostate; R05.3 Chronic cough
CPT/HCPCS: 82274

== ENCOUNTER 2022-07-24 06:26 | Day surgery (SDC) | payer MEDICARE, OTHER, SELFPAY ==
[2022-07-19 15:09] VITALS: BMI 26.9
[2022-07-24] VITALS (8 sets, daily range): BP systolic 102–152; BP diastolic 60–84; PULSE 55–77; RESP 9–18; TEMP 36.2–36.9; O2SAT 94–98; BMI 26.2
[2022-07-24] MEDS: LACTATED RINGERS 1,000 ML 21 ML IV (06:56)
--- NOTE | 2022-07-24 07:13 | PM.PREOP ---
Pre-operative Note COVID-19 Criteria for continued procedure: Expected advancement of disease process, Possibility delay results in more complex future surgery or treatment, Deterioration of the patient's condition or overall health, Delay expected to result in less-positive ultimate med/surg outcome and Non-surgical alternatives not available or appropriate per current SOC Interval Note History & Physical reviewed/Exam performed by Physician: Yes Changes to H&P: No
[2022-07-24] MEDS: CEFAZOLIN 2 GM/100 ML PREMIX 100 ML IV (07:55)
--- NOTE | 2022-07-24 07:59 | SUR.OPER ---
Lithotomy on padded OR bed, head on pillow, arms secured on padded arm boards at <90 degrees abduction. Legs secured in padded yellow fins stirrups.
--- NOTE | 2022-07-24 08:17 | PM.OP.1 ---
Operative Date/Time/Diagnoses Date of procedure: 07/24/22 Time of procedure: 08:10 Pre-op diagnosis: 1. Recurrent membranous urethral stricture. 2. Status post prostate radiation therapy. 3. History of prostate cancer. Post-op diagnosis: same Procedure & Clinicians Procedure: 1. Cystoscopy/dilation recurrent membranous urethral stricture. Same procedure as scheduled: Yes Indications: 1. Recurrent membranous urethral stricture. 2. History of prostate radiation. 3. History of prostate cancer. Surgeon: Mishel Herbert Click Yes if Unassisted: Yes Anesthesia Type: General Operative Notes Findings: 1. Urethra-normal caliber without annular stricture or lesion. 2. External sphincter-partially gaping and hypovascular. Fixed obstruction not allowing passage of the 22 [place] miguel endoscope. Closure Type: not applicable Specimen(s): none sent Applied: catheter (Fourteen [place] silicone catheter modified to [place] tip.) Estimated Blood Loss (mL): 2 Blood products transfused: none Procedure in detail: The patient was positioned in supine and was administered general anesthesia. The patient was then positioned in semi-lithotomy and the lower abdomen, genitalia, and groin were then prepped and draped in sterile fashion. A 22 [place] miguel endoscope was then passively urinary tract with the findings as described above. Intraoperative photographs were obtained. Next, a super stiff guidewire was advanced through the external sphincter under direct visualization. The miguel endoscope was then backloaded off the super stiff wire. [place] David sounds were then used to successively dilate the lower urinary tract from 16 [place] to 30 [place]. A 14 [place] silicone catheter was then modified to [place] using a catheter punch. Silicone catheter was then advanced over the guidewire and into the bladder. The balloon was inflated to 10 cc in the guidewire was removed. The catheter was attached to gravity drainage. The patient was then repositioned in supine, was awakened, transferred to [facility] and transported to PACU awake and in stable condition. Complications: none Post-operative Condition: stable Disposition: PACU Plan for aftercare: Discharge home
== END 2022-07-24 09:28 | disposition home or self-care (01) ==
PROVIDERS: Family Provider Family Medicine; PCP Family Medicine; Referring Provider Specialist; Visit Provider Specialist
PROC: (CPT 52281; principal; 2022-07-24 07:45)
DX: N35.913 Unspecified membranous urethral stricture, male (principal); Z85.46 Personal history of malignant neoplasm of prostate
CPT/HCPCS: 52281; J0690; J1885; J2704

== ENCOUNTER → 2022-07-26 14:34 | Outpatient (CLI) | payer MEDICARE, OTHER, SELFPAY | PROVIDERS: Family Provider Family Medicine; PCP Family Medicine; Visit Provider Specialist | DX: Z85.46 Personal history of malignant neoplasm of prostate (principal); Z87.448 Personal history of other diseases of urinary system | CPT/HCPCS: 51798; 87086 ==

== ENCOUNTER → 2022-12-05 10:48 | Outpatient (CLI) | payer MEDICARE, OTHER, SELFPAY ==
--- NOTE | 2022-12-05 | DI.ECHO.S_ITS ---
[facility] +---------+ : : [address] : : : : [id number] : : : : Phone: [phone]+ Echocardiogram Report + + :Name: ADIEL DRUANT Study Date: 12/05/2022 Height: 71 in : :[facility] ReadingLocation: Weight: 180 lb : : Gender: Male BSA: 2.0 m2 : :: 1950 Age: 72 yrs BP: 141/79 mmHg: :Reason For Study: CHEST PAIN : :Ordering Physician: TIA, : :LENI Elder Performed By: Glenna Willett : :Referring: LENI PENDLETON : + + Interpretation Summary There is mild concentric left ventricular hypertrophy. The ejection fraction is estimated to be 50-55%. Grade I diastolic dysfunction. The right ventricle is normal in size and function. There is trace aortic regurgitation. Pulmonary artery pressures cannot be estimated because of the lack of a measurable TR jet velocity but the IVC suggests a CVP of around 3 mmHg. Procedure: A two-dimensional transthoracic echocardiogram with color flow and Doppler was performed. The study quality was technically adequate. There is no prior echocardiogram noted for this patient. The patient was in sinus rhythm with heart rates between 68-81 bpm during the exam. Left Ventricle: The left ventricle is normal in size. There is mild concentric left ventricular hypertrophy. The ejection fraction is estimated to be 50-55%. Diastolic parameters suggest a relaxation abnormality of the left ventricle, consistent with probable normal filling pressures. Right Ventricle: The right ventricle is normal in size and function. Atria: The left atrial size is normal. Right atrial size is normal. There is no Doppler evidence for an interatrial shunt. Mitral Valve: The mitral valve leaflets appear mildly thickened, but open well. There is no mitral regurgitation noted. Aortic Valve: The aortic valve is trileaflet. The aortic valve is mildly calcified. There is mild aortic valve sclerosis. The peak aortic velocity is 2.1 m/sec. The aortic valve mean gradient is 10 mmHg. The calculated aortic valve area is 2.1 cm2. There is no hemodynamically significant valvular aortic stenosis. There is trace aortic regurgitation. Tricuspid Valve: The tricuspid valve is normal in structure and function. There is a trace or physiologic amount of tricuspid regurgitation. Pulmonary artery pressures cannot be estimated because of the lack of a measurable TR jet velocity but the IVC suggests a CVP of around 3 mmHg. Pulmonic Valve: The pulmonic valve is not well seen, but is grossly normal. There is a trace or physiologic amount of pulmonic regurgitation. Great Vessels: The aortic root is normal size. The ascending aorta could not be visualized. The IVC is of normal diameter and collapses greater than 50% with a sniff. This suggests a low right atrial pressure of 3 mm Hg. Pericardium/ Pleura There is no pericardial effusion. There is no pleural effusion. MMode/2D Measurements & Calculations LVIDd: 4.9 cm LVOT diam: 2.4 cm LVIDs: 3.8 cm Ao root diam: 3.5 cm FS: 22.5 % Ao Arch Diam (Prox Trans): 2.9 cm EPSS: 1.1 cm IVSd: 1.2 cm LVPWd: 1.3 cm LV lara. diameter/BSA (cm/m^2): 2.4 LV sys. diameter/BSA (cm/m^2): 1.9 LA A2 area: 18.4 cm2 RA long axis: 5.4 cm LA A4 area: 16.5 cm2 RA area: 14.3 cm2 LA length (vol): 4.3 cm RA vol: 32.1 ml LA vol: 60.6 ml RA : 15.9 ml/m2 LA vol index: 30.1 ml/m2 IVC diam: 2.0 cm RVD1 (basal): 4.4 cm RVD2 (mid): 3.7 cm TAPSE: 2.0 cm Doppler Measurements & Calculations Ao V2 max: 207.8 cm/sec LVOT Max Martin: 97.1 cm/sec Ao V2 mean: 149.9 cm/sec LV V1 max P.8 mmHg Ao max P.0 mmHg LV V1 VTI: 19.4 cm Ao mean P.1 mmHg MELECIO(I,D): 2.2 cm2 Ao V2 VTI: 39.8 cm MELECIO(V,D): 2.1 cm2 sev ratio: 0.49 MELECIO indexed to BSA (cm^2/m^2): 1.1 MV E max martin: 88.0 cm/sec PA V2 max: 110.4 cm/sec MV A max martin: 110.4 cm/sec PA V2 mean: 76.3 cm/sec MV E/A: 0.80 PA mean P.6 mmHg Med Peak E' Martin: 7.8 cm/sec PA pr(Accel): 31.0 mmHg E/E' med: 11.3 Lat Peak E' Martin: 6.6 cm/sec E/E' lat: 13.4 E/e' average: 12.4 MV dec time: 0.16 sec SV(OT): 86.0 ml Reading Physician:10:37 AM
--- NOTE | 2022-12-05 21:43 | DI.NM.S_ITS ---
DATE OF SERVICE: 12/05/2022 PROCEDURE: Pharmacological perfusion study. INDICATIONS: Chest pain with underlying left bundle branch block, hypertension. RADIOPHARMACEUTICAL: 26.3 millicurie technetium-99m Myoview IV was injected at stress and 12.7 millicurie technetium-99m Myoview IV was injected at rest. CARDIAC STRESS: The patient underwent IV Lexiscan perfusion study under the supervision of an attending staff as per standard Lexiscan protocol. The patient remained hemodynamically stable. Baseline blood pressure was 138/82. Baseline rhythm sinus with left bundle branch block. During stress, no new convincing ischemic changes or new arrhythmias seen. Mild chest discomfort with Lexiscan, which got improved in recovery. RAW DATA: There is increased subdiaphragmatic activity. GATED STUDY: Resting LV ejection fraction 45% and stress LV ejection fraction 48%. I do not see any obvious regional wall motion abnormalities. Dilated LV with LV end-diastolic volume 205 mL. TID ratio 0.89, which is within normal limits. Lung/heart ratio 0.15, which is within normal limits. MYOCARDIAL PERFUSION SCAN: Stress supine, resting supine and stress prone images were compared to each other. There appears to be predominantly fixed, moderate size, severely decreased perfusion of base to mid anterior wall involving the entire septum as well. In addition to that, there is a large size, moderate to severely decreased, predominantly fixed perfusion defect of inferior wall as well. No reversible ischemia. 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 Lateral wall is spared. Mildly decreased left ventricular function. The patient has underlying left bundle branch block, which can affect anterior wall and septal perfusion defect. However, it did not get improved on prone images. Correlate clinically and consider left heart catheterization to make sure the patient does not have any significant underlying coronary artery disease. Raymundo Lopez - JASMIN/alexandra/DANIELLE doc#: [id number]/job#: [id number] dd: 12/05/2022 17:32:00 dt: 12/05/2022 21:28:00 DICTATING MD/COPIES TO: Emma Crews MD; Leni Pendleton M.D. COPIES MNE: JULIA;
== END ==
PROVIDERS: Family Provider Family Medicine; PCP Family Medicine; Referring Provider Internal Medicine Cardiovascular Disease; Visit Provider Internal Medicine Cardiovascular Disease
DX: R07.9 Chest pain, unspecified (principal); I44.7 Left bundle-branch block, unspecified; I51.7 Cardiomegaly; I35.1 Nonrheumatic aortic (valve) insufficiency
CPT/HCPCS: 78452; 93017; 93306; A9502; J2785

== ENCOUNTER → 2022-12-29 06:59 | Outpatient (CLI) | payer MEDICARE, OTHER, SELFPAY ==
[2022-12-29 08:45] LABS: Alanine Aminotransferase 27 IU/L (<50); Albumin 4.2 g/dL (3.5-5.0); Albumin Globulin Ratio 1.4 (1.0-2.8); Alkaline Phosphatase 69 U/L (38-126); Aspartate Aminotransferase 31 IU/L (17-59); BUN Creatinine Ratio 19.8 (6-22); Bilirubin Total 1.1 mg/dL (0.2-1.3); Blood Urea Nitrogen 17 mg/dL (9-20); Carbon Dioxide 24 mmol/L (22-32); Chloride 106 mmol/L (98-107); Cholesterol 229 mg/dL (140-199); Estimated Glomerular Filt Rate > 60 mL/min (>60); Globulin 2.9 g/dL (1.7-4.1); Glucose 102 mg/dL (80-110); HDL Cholesterol 40 mg/dL (40-60); HEMOLYSIS 19 (0-50); LDL Cholesterol Calculated 143 mg/dL (<100); Potassium 3.7 mmol/L (3.4-5.1); Sodium 138 mmol/L (137-145); Total Protein 7.1 g/dL (6.3-8.2); Triglycerides 230 mg/dL (35-150)
[2022-12-29 08:46] LABS: Add Manual Diff / Slide Review NO; Basophils Absolute Auto 0 /uL (0-100); Basophils Percent Auto 0.9 % (0-2); Eosinophils Absolute Auto 200 /uL (0-450); Hematocrit 44.5 % (41-53); Hemoglobin 15.3 g/dL (13.5-17.5); Lymphocytes Absolute Auto 1600 /uL (1100-4500); Lymphocytes Percent Auto 31.8 % (25-40); Mean Corpuscular HGB Conc 34.4 % (30-36); Mean Corpuscular Hemoglobin 33.1 PG (26-34); Mean Corpuscular Volume 96.2 fL (80-100); Monocytes Absolute Auto 500 /uL (0-900); Monocytes Percent Auto 9.9 % (3-14); Neutrophils Absolute Auto 2700 /uL (1500-7000); Neutrophils Percent Auto 53.4 % (50-75); Platelet Count 158 X10^3/uL (150-400); Red Blood Cell Count 4.62 X10^6/uL (4.5-5.9); Red Cell Distribution Width 13.6 % (11.6-14.8)
[2022-12-29 09:26] LABS: Prostate Specific Antigen Scrn < 0.064 ng/mL (0.1-4.0)
== END ==
PROVIDERS: Family Provider Family Medicine; PCP Family Medicine; Referring Provider Internal Medicine Cardiovascular Disease; Visit Provider Internal Medicine Cardiovascular Disease
DX: R07.9 Chest pain, unspecified (principal); Z12.5 Encounter for screening for malignant neoplasm of prostate; E78.5 Hyperlipidemia, unspecified; Z85.46 Personal history of malignant neoplasm of prostate; R05.3 Chronic cough
CPT/HCPCS: 36415; 80053; 80061; 84443; 85025; G0103

== ENCOUNTER → 2023-03-08 07:13 | Outpatient (CLI) | payer MEDICARE, OTHER, SELFPAY ==
--- NOTE | 2023-03-08 07:16 | DI.US.S_ITS ---
PROCEDURE: US CAROTID DOPPLER BI INDICATIONS: DYSLIPIDEMIA TECHNIQUE: Color and pulse Doppler interrogation was performed of both carotid systems, with image documentation and velocity measurements. COMPARISON: None. FINDINGS: Stenosis calculations are based on SRU (Society of Radiologists in Ultrasound) criteria. Right side: Brachial blood pressure: 152/76 mm Hg. Common carotid artery peak systolic velocity: 115 cm/sec. Internal carotid artery peak systolic velocity: 90 cm/sec. Internal carotid artery end diastolic velocity: 13 cm/sec. External carotid artery peak systolic velocity: 113 cm/sec. ICA/CCA peak systolic ratio: 0.8 . Sosa scale imaging description: No atheromatous plaque or calcification. Percent internal carotid artery stenosis: No right internal carotid artery stenosis. Vertebral artery: Flow direction is antegrade. Left side: Brachial blood pressure: 145/79 mm Hg. Common carotid artery peak systolic velocity: 140 cm/sec. Internal carotid artery peak systolic velocity: 91 cm/sec. Internal carotid artery end diastolic velocity: 19 cm/sec. External carotid artery peak systolic velocity: 109 cm/sec. ICA/CCA peak systolic ratio: 0.7 . Sosa scale imaging description: Mild atheromatous plaque. Percent internal carotid artery stenosis: 50-69% stenosis based on velocity criteria. Vertebral artery: Flow direction is antegrade. IMPRESSION: 1. No stenosis of the right internal carotid artery. 2. 50-69% stenosis of the left internal carotid artery based on velocity criteria. Dictated by: Iesha Nicholas M.D. on 03/08/2023 at 9:39 Approved by: Iesha Nicholas M.D. on 03/08/2023 at 9:41
== END ==
LOC: US 07:14
PROVIDERS: Family Provider Family Medicine; PCP Family Medicine; Referring Provider Internal Medicine Cardiovascular Disease; Visit Provider Internal Medicine Cardiovascular Disease
DX: E78.5 Hyperlipidemia, unspecified (principal); I65.22 Occlusion and stenosis of left carotid artery
CPT/HCPCS: 93880

== ENCOUNTER → 2024-01-18 06:57 | Outpatient (CLI) | payer MEDICARE, OTHER, SELFPAY ==
[2024-01-18 07:55] LABS: Hemoglobin A1C% w Est Avg Glu 5.6 % (4.0-6.0)
[2024-01-18 08:04] LABS: Alanine Aminotransferase 32 IU/L (<50); Albumin 4.3 g/dL (3.5-5.0); Albumin Globulin Ratio 1.7 (1.0-2.8); Alkaline Phosphatase 74 U/L (38-126); Aspartate Aminotransferase 34 IU/L (17-59); BUN Creatinine Ratio 21.3 (6-22); Bilirubin Total 0.7 mg/dL (0.2-1.3); Blood Urea Nitrogen 19 mg/dL (9-20); Calcium 9.1 mg/dL (8.4-10.2); Carbon Dioxide 27 mmol/L (22-32); Chloride 106 mmol/L (98-107); Cholesterol 212 mg/dL (140-199); Estimated Glomerular Filt Rate > 60 mL/min (>60); Globulin 2.6 g/dL (1.7-4.1); Glucose 101 mg/dL (80-110); HDL Cholesterol 48 mg/dL (40-60); HEMOLYSIS < 15 (0-50); LDL Cholesterol Calculated 131 mg/dL (<100); Potassium 4.2 mmol/L (3.4-5.1); Sodium 139 mmol/L (137-145); Total Protein 6.9 g/dL (6.3-8.2); Triglycerides 166 mg/dL (35-150)
[2024-01-18 08:10] LABS: Add Manual Diff / Slide Review NO; Basophils Absolute Auto 0 /uL (0-100); Basophils Percent Auto 0.7 % (0-2); Eosinophils Absolute Auto 200 /uL (0-450); Eosinophils Percent Auto 3.9 % (2-4); Hematocrit 44.7 % (41-53); Hemoglobin 15.6 g/dL (13.5-17.5); Lymphocytes Absolute Auto 2000 /uL (1100-4500); Lymphocytes Percent Auto 32.8 % (25-40); Mean Corpuscular HGB Conc 34.8 % (30-36); Mean Corpuscular Hemoglobin 33.8 PG (26-34); Mean Corpuscular Volume 97.2 fL (80-100); Monocytes Absolute Auto 600 /uL (0-900); Monocytes Percent Auto 9.4 % (3-14); Neutrophils Absolute Auto 3300 /uL (1500-7000); Neutrophils Percent Auto 53.2 % (50-75); Platelet Count 178 X10^3/uL (150-400); Red Cell Distribution Width 13.4 % (11.6-14.8); White Blood Cell Count 6.1 X10^3/uL (4.5-11.0)
[2024-01-18 08:31] LABS: TSH w/ Reflex to FT4 1.86 uIU/mL (0.47-4.68)
[2024-01-18 08:32] LABS: Prostate Specific Antigen 0.106 ng/mL (0.10-4.00)
== END ==
LOC: LAB 07:00
PROVIDERS: Urology; Family Provider Family Medicine; PCP Family Medicine; Referring Provider Physician Assistant; Visit Provider Physician Assistant
DX: E78.5 Hyperlipidemia, unspecified (principal); Z13.1 Encounter for screening for diabetes mellitus; Z87.448 Personal history of other diseases of urinary system; Z85.46 Personal history of malignant neoplasm of prostate
CPT/HCPCS: 36415; 80053; 80061; 83036; 84153; 84443; 85025

== ENCOUNTER → 2024-03-26 06:46 | Outpatient (CLI) | payer MEDICARE, OTHER, SELFPAY ==
--- NOTE | 2024-03-26 06:48 | DI.US.S_ITS ---
PROCEDURE: US CAROTID DOPPLER BI INDICATIONS: STENOSIS OF LEFT CAROTID ARTERY TECHNIQUE: Color and pulse Doppler interrogation was performed of both carotid systems, with image documentation and velocity measurements. COMPARISON: [facility], [place], US CAROTID DOPPLER BI, 03/08/2023, 7:23. FINDINGS: Stenosis calculations are based on SRU (Society of Radiologists in Ultrasound) criteria. Right side: Brachial blood pressure: 145/88 mm Hg. Common carotid artery peak systolic velocity: 78 cm/sec. Internal carotid artery peak systolic velocity: 106 cm/sec. Internal carotid artery end diastolic velocity: 29 cm/sec. External carotid artery peak systolic velocity: 120 cm/sec. ICA/CCA peak systolic ratio: 1.4 . Sosa scale imaging description: No significant atherosclerotic plaque. Waveforms are normal. Percent internal carotid artery stenosis: Less than 50% . Vertebral artery: Flow direction is antegrade. Left side: Brachial blood pressure: 137/82 mm Hg. Common carotid artery peak systolic velocity: 82 cm/sec. Internal carotid artery peak systolic velocity: 98 cm/sec. Internal carotid artery end diastolic velocity: 27 cm/sec. External carotid artery peak systolic velocity: 93 cm/sec. ICA/CCA peak systolic ratio: 1.2 . Sosa scale imaging description: No significant plaque or stenosis seen. Normal waveforms. Percent internal carotid artery stenosis: Less than 50% . Vertebral artery: Flow direction is antegrade. Incidental note of isoechoic, left inferior pole thyroid nodule measuring up to 2.7 cm. IMPRESSION: 1. In the right carotid artery, there is no hemodynamically significant stenosis based on peak systolic velocity criteria. 2. In the left carotid artery, there is no hemodynamically significant stenosis based on peak systolic velocity criteria. 3. Antegrade vertebral arteries. 4. 2.7 cm left inferior pole thyroid nodule. Recommend thyroid ultrasound for further characterization and follow-up recommendations. Dictated by: Rochelle Llamas M.D. on 03/26/2024 at 9:52 Approved by: Rochelle Llamas M.D. on 03/26/2024 at 9:57
== END ==
PROVIDERS: Family Provider Family Medicine; PCP Family Medicine; Referring Provider Internal Medicine Cardiovascular Disease; Visit Provider Internal Medicine Cardiovascular Disease
DX: I65.22 Occlusion and stenosis of left carotid artery (principal); E04.1 Nontoxic single thyroid nodule
CPT/HCPCS: 93880

== ENCOUNTER → 2024-04-10 07:00 | Outpatient (CLI) | payer MEDICARE, OTHER, SELFPAY ==
--- NOTE | 2024-04-10 07:00 | DI.US.S_ITS ---
PROCEDURE: US THYROID INDICATIONS: Thyroid Nodule, 2.7cm Left inferior pole TECHNIQUE: Real-time scanning was performed of the thyroid gland, with image documentation. COMPARISON: None. FINDINGS: Thyroid: Right lobe measures 6.6 x 2.4 x 2.2 cm. Left lobe measures 5.6 x 2.3 x 2.2 cm. Isthmus is 0.5 cm thick. Echotexture is heterogeneous. Nodule number: 1 Location: Left mid inferior Size: 2.9 x 1.5 x 1.9 cm. Composition: Solid Echogenicity: Hypoechoic Shape: wider than tall. Margins: Smooth Echogenic foci: Punctate Total points: 7 ACR TI-RADS category: 5 IMPRESSION: Category 5 lesion with size criteria meeting FNA follow up. ACR TI-RADS definitions and recommendations: TI-RADS 1 (benign): 0 points. FNA not needed. TI-RADS 2 (not suspicious): 2 points. FNA not needed. TI-RADS 3: 3 points. * FNA if 2.5 cm or larger, follow up if 1.5 cm or larger (at 1, 3, and 5 years). TI-RADS 4: 4-6 points. * FNA if 1.5 cm or larger, follow up if 1 cm or larger (at 1, 2, 3, and 5 years). TI-RADS 5: 7 points or more. * FNA if 1 cm or larger, follow up if 0.5 cm or larger (every year for 5 years). Dictated by: Sharyn Hilton M.D. on 04/10/2024 at 14:01 Approved by: Sharyn Hilton M.D. on 04/10/2024 at 14:04
== END ==
LOC: US 07:00
PROVIDERS: Family Provider Family Medicine; PCP Family Medicine; Referring Provider Family Medicine; Visit Provider Family Medicine
DX: E04.1 Nontoxic single thyroid nodule (principal)
CPT/HCPCS: 76536

== ENCOUNTER → 2024-04-28 12:01 | Outpatient (CLI) | payer MEDICARE, OTHER, SELFPAY ==
--- NOTE | 2024-04-28 | PATH_ITS ---
Note [facility] Accession Number: [id number] TESTS RESULT FLAG UNITS REF RANGE LAB Clinician Provided Cytology Information No. of containers..01 Other (Miscellaneous) No. of containers..00 Previously Prepared Cytology Slide Source: LEFT THYROID NODULE # 1 DIAGNOSIS: LEFT THYROID NODULE # 1, FINE NEEDLE ASPIRATION. NEGATIVE FOR MALIGNANT CELLS. ADEQUATE FOR EVALUATION. FOLLICULAR GROUPS ARE PRESENT. BENIGN FOLLICULAR (GOITEROUS) NODULE (BETHESDA CATEGORY II), SEE COMMENT. COMMENT: MICROSCOPIC EXAMINATION REVEALS A MILDLY CELLULAR ASPIRATE, COMPOSED OF COLLOID, FOLLICULAR GROUPS WITHOUT SIGNIFICANT CYTOLOGIC OR ARCHITECTURAL ATYPIA, AND BACKGROUND MACROPHAGES. THESE FINDINGS SUPPORT A BENIGN FOLLICULAR (GOITEROUS) NODULE. CORRELATION WITH CLINICAL AND RADIOGRAPHIC FINDINGS IS RECOMMENDED. ACCORDING TO THE BETHESDA REPORTING SYSTEM FOR THYROID CYTOPATHOLOGY, THE RISK OF MALIGNANCY IN THE CATEGORY BENIGN-CATEGORY II IS 0-3%; THEREFORE RECOMMEND CONTINUED ULTRASOUND SURVEILLANCE WITH REPEAT FNA IF THE NODULE SIGNIFICANTLY INCREASES IN SIZE. Pathologist ICD10: 01 E04.1 Signed out by: Chiara Gayle MD, Pathologist NPI- [id number] Performed by: Chiara Chávez, Towel Cabinet Repairer ([facility]) Gross description: 01 30 CC, RED, CLEAR RECIEVED: IN CYTOLYT WITH 5 ALCOHOL FIXED AND 5 QUICK STAINED SLIDES ALSO 1 RNA VIAL WILL ON 10-10-2024.VO /VDU 04/29/2024 0619 Local FLAG LEGEND: L-Low Normal,H-High Normal,LL-Alert Low,HH-Alert High <-Panic Low,>-Panic High,A-Abnormal,AA-Critical Abnormal Performed at: 01 =[address] [facility], [place] [address] Gopal Ahuja MD, Performed at: [address], [place], [place] [id number] MD Gopal Ahuja MD Phone: [phone]
--- NOTE | 2024-04-28 12:02 | DI.US.S_ITS ---
PROCEDURE: US FINE NEEDLE ASPIRATION INDICATIONS: Thyroid category 5 lesion with size criteria meeting FNA F/U TECHNIQUE: The indications, alternatives, benefits, risks, and complications of the procedure were explained to the patient. Written informed consent was obtained and placed in the chart. The area of interest was examined sonographically and a site was chosen for ultrasound guided percutaneous sampling. The skin was prepared and draped in the usual fashion, and anesthetized with 1% lidocaine infiltrated from the skin down to the lesion. Multiple passes were then performed, with contents emptied into an appropriate pathology specimen container. A bandage was applied to the area of access at completion of the study. COMPARISON: [facility], , THYROID, 04/10/2024, 7:23. FINDINGS: Location(s) of lesion(s) sampled: Left lower lobe [place]: 25 gauge hypodermic needles. Number of passes: 5 Medications: 1% lidocaine for local anaesthesia. Complications: None. IMPRESSION: Successful ultrasound-guided left lower thyroid lobe fine needle aspiration, with cytology results pending. Dictated by: Sharyn Hilton M.D. on 04/28/2024 at 16:15 Approved by: Sharyn Hilton M.D. on 04/28/2024 at 16:15
== END ==
PROVIDERS: Family Provider Family Medicine; PCP Family Medicine; Referring Provider Family Medicine; Visit Provider Family Medicine
DX: E04.1 Nontoxic single thyroid nodule (principal)
CPT/HCPCS: 10005

== ENCOUNTER → 2024-06-03 10:30 | Outpatient (CLI) | payer MEDICARE, OTHER, SELFPAY ==
[2024-06-03 10:55] LABS: Add Manual Diff / Slide Review NO; Basophils Absolute Auto 0 /uL (0-100); Basophils Percent Auto 0.8 % (0-2); Eosinophils Absolute Auto 200 /uL (0-450); Eosinophils Percent Auto 2.8 % (2-4); Hematocrit 44.7 % (41-53); Hemoglobin 15.5 g/dL (13.5-17.5); Lymphocytes Absolute Auto 1500 /uL (1100-4500); Lymphocytes Percent Auto 26.6 % (25-40); Mean Corpuscular HGB Conc 34.8 % (30-36); Mean Corpuscular Hemoglobin 33.3 PG (26-34); Mean Corpuscular Volume 95.8 fL (80-100); Monocytes Absolute Auto 500 /uL (0-900); Monocytes Percent Auto 8.8 % (3-14); Neutrophils Absolute Auto 3500 /uL (1500-7000); Platelet Count 163 X10^3/uL (150-400); Red Blood Cell Count 4.66 X10^6/uL (4.5-5.9); Red Cell Distribution Width 13.4 % (11.6-14.8); White Blood Cell Count 5.8 X10^3/uL (4.5-11.0)
[2024-06-03 11:03] LABS: Estimated Glomerular Filt Rate > 60 mL/min (>60)
[2024-06-03 11:14] LABS: Alanine Aminotransferase 35 IU/L (<50); Albumin 4.5 g/dL (3.5-5.0); Albumin Globulin Ratio 1.6 (1.0-2.8); Alkaline Phosphatase 70 U/L (38-126); Aspartate Aminotransferase 34 IU/L (17-59); BUN Creatinine Ratio 26.9 (6-22); Blood Urea Nitrogen 25 mg/dL (9-20); Calcium 9.4 mg/dL (8.4-10.2); Carbon Dioxide 22 mmol/L (22-32); Chloride 108 mmol/L (98-107); Cholesterol 165 mg/dL (140-199); Estimated Glomerular Filt Rate > 60 mL/min (>60); Globulin 2.8 g/dL (1.7-4.1); Glucose 102 mg/dL (80-110); HDL Cholesterol 52 mg/dL (40-60); HEMOLYSIS < 15 (0-50); LDL Cholesterol Calculated 80 mg/dL (<100); Potassium 4.2 mmol/L (3.4-5.1); Sodium 140 mmol/L (137-145); Total Protein 7.3 g/dL (6.3-8.2); Triglycerides 165 mg/dL (35-150)
--- NOTE | 2024-06-03 11:21 | DI.CT.S_ITS ---
PROCEDURE: CT IVP A/P W/WO INDICATIONS: 73 y/o M w/ gross hematuria, eval upper tracts TECHNIQUE: Optional 5 mm thick noncontrast images acquired from the diaphragm to the symphysis pubis. After the administration of intravenous contrast, 5 mm thick images acquired from the diaphragm to the symphysis pubis after a 10-minute delay. 2 mm thick coronal and sagittal reformats were then performed of the kidneys and ureters. For radiation dose reduction, the following was used: automated exposure control, adjustment of mA and/or kV according to patient size. COMPARISON: None. FINDINGS: Image quality: Diagnostic. Kidneys and Ureters: Both kidneys are normal in size, without hydronephrosis or nephrolithiasis. No perinephric fat stranding. There is normal bilateral renal enhancement. Left peripelvic cysts. Renal calyces appear normal in morphology when filled with contrast. Opacified portions of both ureters demonstrate normal caliber Bladder: Bladder wall thickness is normal. No calcified bladder stones. OTHER: Lower chest: A few areas of distal mucus airway plugging. No pleural effusion. Liver: No solid mass. Gallbladder: No radiopaque gallstones or wall thickening. Biliary ducts: No biliary dilation. Pancreas: No ductal dilation. Spleen: Size is within normal limits. Adrenal Glands: No adrenal nodules. Stomach and Bowel: Normal colonic caliber, without significant wall thickening. Normal appendix. Peritoneum: No abnormal intraperitoneal fluid. No free air. Ventral Wall: No hernia. Abdominal Nodes: No retroperitoneal or mesenteric adenopathy by size criteria. Vessels: Aorta and inferior vena cava are normal in size. PELVIS: Pelvic Organs: Prostate brachytherapy seeds. Pelvic Nodes: No enlarged lymph nodes. Miscellaneous: No inguinal hernias are seen. Trace fluid near the left groin. Bones: No aggressive osseous abnormality. Anterolisthesis of L4 on L5 measuring 0.4 cm. IMPRESSION: 1. No kidney stones. No hydronephrosis. 2. No solid renal mass. No upper urinary tract filling defect. 3. Prostate brachytherapy seeds. No suspicious osseous lesion identified. No adenopathy. Dictated by: Espinoza Estes M.D. on 06/03/2024 at 16:04 Approved by: Espinoza Estes M.D. on 06/03/2024 at 16:13
[2024-06-03 11:38] LABS: Creatinine Urine Random 146.96 mg/dL
[2024-06-03 11:42] LABS: TSH w/ Reflex to FT4 1.38 uIU/mL (0.47-4.68)
[2024-06-03 11:44] LABS: Microalbumin Urine Random 1.2 mg/dL (0-1.6)
[2024-06-03 11:46] LABS: Prostate Specific Antigen Scrn < 0.064 ng/mL (0.1-4.0)
[2024-06-04 04:16] LABS: Apolipoprotein B 80 mg/dL (<90)
== END ==
LOC: CT 10:32
PROVIDERS: Family Provider Family Medicine; PCP Family Medicine; Referring Provider Family Medicine; Visit Provider Urology
DX: N28.1 Cyst of kidney, acquired (principal); R31.0 Gross hematuria; I65.29 Occlusion and stenosis of unspecified carotid artery; E78.5 Hyperlipidemia, unspecified; E04.1 Nontoxic single thyroid nodule; Z12.5 Encounter for screening for malignant neoplasm of prostate; Z87.898 Personal history of other specified conditions
CPT/HCPCS: 36415; 74178; 80053; 80061; 82043; 82172; 82565; 82570; 84443; 85025; G0103; Q9967

== ENCOUNTER 2024-09-29 08:00 | Day surgery (SDC) | payer MEDICARE, OTHER, SELFPAY ==
[2024-07-25 10:52] VITALS: BMI 25.2
[2024-09-29] MEDS: LACTATED RINGERS 1,000 ML 42 ML IV (08:15)
[2024-09-29 08:21] VITALS: BP 156/73; PULSE 82; RESP 16; TEMP 36.4; O2SAT 97
--- NOTE | 2024-09-29 08:54 | PM.HP.IH.1 ---
History of Present Illness History of Present Illness Date Patient Seen: 09/29/24 Chief complaint: Screening Colonoscopy [facility] Medical History (Updated 07/25/24 @ 11:12 by Andie Godfrey, RN) Left bundle branch block (LBBB) Carotid artery disease DELIA (stress urinary incontinence), male Hyperlipidemia Vision disorder Hearing loss Dry skin History of elevated PSA (~2006) Membranous urethral stricture History of urethral stricture History of malignant neoplasm of prostate Wheezing (~2009) Surgical History (Updated 07/25/24 @ 10:51 by Andie Godfrey RN) Hx of cystoscopy (07/19/22) Hx of cystoscopy (03/21/21) Anesthesia Abscess (~2019) History of removal of skin mole (~2014) History of hernia repair (~1997) Hx of cystoscopy (03/15/21) Hx of left inguinal hernia repair (07/05/17) Prostate cancer (~2006) Family History Father Cancer Diabetes mellitus Mother Cancer Diabetes mellitus Hyperlipidemia Brother Arthritis Grandfather Diabetes mellitus Other Lives with spouse Retired from employment Social History household members: spouse Smoking Status: Never smoker alcohol intake: current Meds Home Medications and Allergies Home Medications ?Medication ?Instructions ?Recorded ?Confirmed ?Type rosuvastatin 20 mg tablet 20 mg PO DAILY 02/12/24 09/29/24 History Allergies Allergy/AdvReac Type Severity Reaction Status Date / Time No Known Drug Allergies Allergy Verified 09/29/24 08:14 Exam Vital Signs (past 8 hours): - 09/29/24 08:21 09/29/24 08:22 Temperature 97.5 F L Pulse Rate 82 Respiratory Rate 16 Blood Pressure 156/73 H Pulse Oximetry 97 Oxygen Delivery Method Room Air Room Air Oxygen Delivery Method Room Air Narrative Exam Narrative: Oropharynx free of lesion Assessment & Plan Assessment & Plan narrative: Follow-up colonoscopy in 10 year interval. Risks, benefits, alternatives have been explained. Time-Based Coding :: [TOTAL MINUTES] spent with patient and on the chart (including review of chart, obtaining history, exam, reviewing outside data, placing orders, documenting exam and treatment plan, and counseling patient) on [DATE]. PROFEE Transportation Director Document charge(s): No
--- NOTE | 2024-09-29 08:55 | PM.OP.COLON ---
Operative Date/Time/Diagnoses Date of procedure: 09/29/24 Time of procedure: 09:19 Pre-op diagnosis: See indication and findings Post-op diagnosis: same Procedure & Clinicians Study performed: Colonoscopy Same procedure(s) as scheduled: Yes Indications: Follow-up colonoscopy in 10 year interval Surgeon: Zak Conley Anesthesia Type: Other Procedure Notes Procedure in detail: After informed consent was obtained the patient was placed in left lateral decubitus position. The video colonoscope was introduced the rectum slowly advanced cecum. On slow withdrawal mucosa was carefully examined. The scope was removed. The patient tolerated procedure well. Blood loss none Complications none Sedation mac Findings 1. Normal colonoscopy to cecum Patient should have follow-up colonoscopy in 10 years if in excellent health
[2024-09-29 09:21] VITALS: BP 98/54; PULSE 68; RESP 15; TEMP 36.2; O2SAT 93
[2024-09-29 09:25] VITALS: BP 106/59; PULSE 66; RESP 14; O2SAT 93
[2024-09-29 09:30] VITALS: BP 98/55; PULSE 64; RESP 19; TEMP 36.1; O2SAT 96
[2024-09-29 09:35] VITALS: BP 98/55; PULSE 64; RESP 12; O2SAT 98
== END 2024-09-29 09:43 | disposition home or self-care (01) ==
PROVIDERS: Family Provider Family Medicine; PCP Family Medicine; Referring Provider Family Medicine; Visit Provider Internal Medicine Gastroenterology
PROC: 0DJD8ZZ Inspection of Lower Intestinal Tract, Via Natural or Artificial Opening Endoscopic (ICD-10-PCS; CPT 45378; principal; 2024-09-29 09:00)
DX: Z12.11 Encounter for screening for malignant neoplasm of colon (principal)
CPT/HCPCS: G0121; J2704

== ENCOUNTER → 2024-12-22 07:44 | Outpatient (CLI) | payer MEDICARE, OTHER, SELFPAY ==
--- NOTE | 2024-12-22 07:48 | DI.ECHO.S_ITS ---
[facility] : : [id number] : : [place] : : [id number] : : Phone: [phone] Echocardiogram Report + + :Name: ADIEL DURANT Study Date: 12/22/2024 Height: 71 in : :Hospital ReadingLocation: Weight: 180 lb : : Gender: Male BSA: 2.0 m2 : :: 1950 Age: 74 yrs BP: 144/89 mmHg: :Reason For Study: Aortic sclerosis : :Ordering Physician: TIA, : :LENI Elder Performed By: Quinton Bonilla : :Referring: LENI WEBER : + + Interpretation Summary The ejection fraction is estimated to be 35-40%. There is hypokinesis of the mid to distal anterior, basal to distal septal, distal inferior (possible), distal inferolateral and apical hernández. Diastolic function was not assessed. The right ventricle is normal in size and function. There is moderate aortic valve sclerosis. Pulmonary artery pressures cannot be estimated because of the lack of a measurable TR jet velocity but the IVC suggests a CVP of around 3 mmHg. Compared to prior study 12/05/2022, the left ventricular ejection fraction has decreased and the segmental wall motion abnormalities are new. Procedure: A two-dimensional transthoracic echocardiogram with color flow and Doppler was performed. The study quality was technically adequate. Comparison is made with the echocardiogram of 12/05/2022. The heart rate ranged between 50-65 bpm during the study. Left Ventricle: The left ventricle is normal in size. Left ventricular wall thickness is mildly increased. Left ventricular systolic function is moderately reduced. The ejection fraction is estimated to be 35-40%. There is hypokinesis of the mid to distal anterior, basal to distal septal, distal inferior (possible), distal inferolateral and apical hernández. Diastolic function was not assessed. Right Ventricle: The right ventricle is normal in size and function. Atria: The left atrial size is normal. Right atrial size is normal. There is no Doppler evidence for an interatrial shunt. Mitral Valve: The mitral valve leaflets appear to open well. There is no mitral valve stenosis. There is trace mitral regurgitation. Aortic Valve: The aortic valve is trileaflet. There is moderate aortic valve sclerosis. The calculated aortic valve area is 1.9 cm2. The peak aortic velocity is 1.5 m/sec. The aortic valve mean gradient is 5 mmHg. The dimensionless index is 0.5. There is trace aortic regurgitation. Tricuspid Valve: The tricuspid valve is not well visualized, but is grossly normal. There is trace tricuspid regurgitation. Pulmonary artery pressures cannot be estimated because of the lack of a measurable TR jet velocity but the IVC suggests a CVP of around 3 mmHg. Pulmonic Valve: The pulmonic valve is not well seen, but is grossly normal. There is trace pulmonic regurgitation. Great Vessels: The aortic root is normal size. The ascending aorta is normal in size. The aortic arch could not be visualized. The pulmonary is not well visualized. The IVC is of normal diameter and collapses greater than 50% with a sniff. This suggests a low right atrial pressure of 3 mm Hg. Pericardium/ Pleura There is no pericardial effusion. MMode/2D Measurements & Calculations LVIDd: 5.2 cm LVOT diam: 2.2 cm LVIDs: 4.3 cm Ao root diam: 3.8 cm FS: 17.4 % asc Aorta Diam: 3.7 cm EPSS: 0.96 cm IVSd: 1.1 cm LVPWd: 1.1 cm LV lara. diameter/BSA (cm/m^2): 2.6 LV sys. diameter/BSA (cm/m^2): 2.1 LA A2 area: 17.9 cm2 RA long axis: 4.7 cm LA A4 area: 18.2 cm2 RA area: 12.1 cm2 LA length (vol): 4.9 cm RA vol: 26.2 ml LA vol: 56.7 ml RA : 13.0 ml/m2 LA vol index: 28.1 ml/m2 IVC diam: 1.6 cm RVD1 (basal): 3.3 cm RVD2 (mid): 3.0 cm TAPSE: 2.1 cm Doppler Measurements & Calculations Ao V2 max: 144.9 cm/sec LVOT Max Martin: 70.4 cm/sec Ao V2 mean: 105.3 cm/sec LV V1 max P.0 mmHg Ao max P.4 mmHg LV V1 VTI: 13.1 cm Ao mean P.0 mmHg MELECIO(I,D): 1.9 cm2 Ao V2 VTI: 26.4 cm MELECIO(V,D): 1.9 cm2 sev ratio: 0.50 MELECIO indexed to BSA (cm^2/m^2): 0.94 MV E max martin: 49.7 cm/sec PA V2 max: 112.8 cm/sec MV A max martin: 89.2 cm/sec PA V2 mean: 75.2 cm/sec MV E/A: 0.56 PA mean P.6 mmHg MV dec time: 0.18 sec PA pr(Accel): 26.3 mmHg SV(LVOT): 50.1 ml Reading Physician:[id number] PM
--- NOTE | 2024-12-22 07:49 | DI.CT.S_ITS ---
PROCEDURE: CT ANGIO NECK INDICATIONS: stenosis TECHNIQUE: After the administration of intravenous contrast, 1.5 mm axial sections acquired from the aortic arch to the [place]. Maximum intensity projection (MIP) reformats were then performed. COMPARISON: [facility], , [place] CAROTID DOPPLER BI, 03/26/2024, 7:13. FINDINGS: Carotid system: The great vessels demonstrate a conventional anatomy as they arise from the aortic arch. The origins of the common carotid arteries appear patent. The common carotid arteries demonstrate normal calibers and courses. The bifurcation regions appear normal bilaterally. The internal carotid arteries demonstrate normal caliber and course. Posterior circulation: The origins of the vertebral arteries appear patent. The more superior portions of the vertebral arteries demonstrate normal course and caliber. They join to form a normal appearing basilar artery. Soft tissues: Visualized neck soft tissues demonstrate no suspicious abnormalities. The thyroid gland shows heterogenous left 2.4 cm nodule, previously evaluated by ultrasound. Bones: No suspicious bony lesions. Visualized cervical spine appears normally aligned. IMPRESSION: Unremarkable CT angiogram of the neck. No evidence of atherosclerotic plaque, stenosis or aneurysm. Approved by: Jeremías Roque M.D. on 12/22/2024 at 11:51
[2024-12-22 08:09] LABS: Estimated Glomerular Filt Rate > 60 mL/min (>60)
[2024-12-22 09:14] LABS: Prostate Specific Antigen < 0.064 ng/mL (0.10-4.00)
== END ==
PROVIDERS: Radiology Diagnostic Radiology; Urology; Family Provider Family Medicine; PCP Family Medicine; Referring Provider Family Medicine; Visit Provider Internal Medicine Cardiovascular Disease
DX: Z85.46 Personal history of malignant neoplasm of prostate (principal); I35.8 Other nonrheumatic aortic valve disorders; I65.22 Occlusion and stenosis of left carotid artery
CPT/HCPCS: 36415; 70498; 82565; 84153; 93306; Q9967